=== PATIENT | male | born 1965 | race Caucasian/White ===

== ENCOUNTER 2018-01-23 16:07 | Observation (INO) | payer OTHER ==
--- OUTSIDE RECORDS SUMMARY | 2018-01-23 17:58 | XMS REPORT | Clinical Summary ---
:1965 Author Organization [facility] Address [address] [place] [address] Care Team Providers Name Role Phone Renard Mccarty MD Primary Care Provider Allergies Active Allergy Reactions Severity Noted Date Comments No Known Drug Allergies 03/31/2016 Current Medications Prescription Sig. Disp. Refills Start Date End Date Status lisinopril TAKE 1 BY MOUTH 0 12/03/2015 Active (PRINIVIL,ZESTRIL) 40 EVERY DAY MG tablet pantoprazole (PROTONIX) 1 EACH ONCE A 0 01/31/2016 Active 40 MG EC tablet DAY ORALLY propranolol (INDERAL) Take 20 mg by 2 01/19/2016 Active 20 MG tablet mouth 2 (two) times a day. HUMALOG 100 unit/mL USE DIRECTED 5 02/04/2016 Active injection FOR INSUIN PUMP STOP NOVOLOG fenofibrate (TRICOR) Take 145 mg by 0 01/31/2016 Active 145 MG tablet mouth once daily. atorvastatin (LIPITOR) Take 40 mg by Active 40 MG tablet mouth daily. metFORMIN (GLUCOPHAGE) Take 1,000 mg by Active 1000 MG tablet mouth 2 (two) times a day with meals. dulaglutide 1.5 mg/0.5 Inject 1.5 mg Active mL pen injector under the skin every 7 days. zinc sulfate (ZINCATE) Take 220 mg by Active 220 (50) mg capsule mouth daily. therapeutic Take 1 tablet by Active multivitamin mouth daily. (THERAGRAN) tablet spironolactone Take 50 mg by Active (ALDACTONE) 50 MG mouth daily. tablet IRON Take 1 tablet by Active CARB,GL/FA/B12/C/DOCUSA mouth daily. TE (FERRALET 90 DUAL-IRON DELIVERY ORAL) lactulose 10 gram/15 mL Take 15 mL (10 g 2700 mL 5 08/20/2016 08/20/2017 (15 mL) total) by mouth solutionIndications: 3 (three) times Cirrhosis of liver a day. without ascites, unspecified hepatic cirrhosis type, MARIANO (nonalcoholic steatohepatitis) Active Problems Problem Noted Date Ascites 08/20/2016 Hepatic encephalopathy 08/20/2016 Anal fissure 03/31/2016 Hematochezia 03/31/2016 Cirrhosis of liver without ascites 02/20/2016 MARIANO (nonalcoholic steatohepatitis) 02/20/2016 Family History Medical History Relation Name Comments Breast cancer Mother Relation Name Status Comments Mother Social History Tobacco Use Types Packs/Day Years Used Date Never Smoker Comments: quit 26 year ago Alcohol Use Drinks/Week oz/Week Comments No Sex Assigned at Date Recorded Not on file Last Filed Vital Signs Not on file Plan of Treatment Health Maintenance Due Date Last Done Comments COLON CANCER SCREENING 2014 SHINGRIX VACCINE (#1) 2014 INFLUENZA VACCINE 12/28/2017 Results Not on fileafter 01/22/2017 Insurance Payer Benefit Plan / Group Subscriber ID Type Phone Address [employer] A[employer] PPO OPEN CHOICE xxxxxx PPO Home: [id number] [phone] [place], [place] [phone]
[2018-01-23] MEDS ORDERED: ALBUTEROL 2.5 MG/3 ML NEB SOL IH PRN (18:20)
[2018-01-23] MEDS ORDERED: POLYETHYL GLY 3350 17 GM/DOSE PO PRN (19:00)
[2018-01-23] MEDS ORDERED: ONDANSETRON 4 MG (ODT) TAB PO PRN (19:00)
[2018-01-23] MEDS ORDERED: LOPERAMIDE HCL 2 MG CAPSULE PO PRN (19:00)
[2018-01-23] MEDS ORDERED: DIPHENHYDRAMINE 25 MG TAB/CAP PO PRN (19:00)
[2018-01-23] MEDS: NACHLORIDE 0.45% 1,000 ML IV SCH (19:00)
[2018-01-23] MEDS ORDERED: ONDANSETRON 4 MG/2 ML VIAL IV PRN (19:00)
[2018-01-23 19:09] LABS: Absolute Lymphocytes (CBC) 0.6 K/uL (0.7-4.9); Absolute Monocytes 0.5 K/uL (0.1-1.3); Absolute Neutrophil 3.4 K/uL (1.8-8.0); Eosinophils % 1.7 % (0-4.4); Hematocrit 30.8 % (39.6-49.0); Lymphocytes % 13.3 % (15.3-44.8); MCH 28.9 pg (27.0-35.0); MPV 8.6 fL (7.6-11.3); Monocytes % 10.4 % (3.3-12.3)
[2018-01-23 19:21] LABS: Protime INR 1.38
[2018-01-23] MEDS: IPRATROPIUM BROM 0.5MG/2.5ML IH SCH (19:26)
[2018-01-23] MEDS: ALBUTEROL 2.5 MG/3 ML NEB SOL IH SCH (19:26)
[2018-01-23 19:39] LABS: Urine White Blood Cell Casts OK
[2018-01-23 19:40] LABS: Blood Morphology Comment NOT SEEN (NOT SEEN); Platelet Estimate DECR
[2018-01-23 19:54] LABS: ALT/SGPT 31 U/L (12-78); AST/SGOT 30 U/L (15-37); Albumin 2.3 g/dL (3.4-5.0); Alkaline Phosphatase 113 U/L (45-117); BUN Blood Urea Nitrogen 28 mg/dL (7-18); Bicarbonate 26 mmol/L (21-32); Glucose Level 239 mg/dL (74-106); Magnesium 1.9 mg/dL (1.8-2.4); Phosphorus 2.1 mg/dL (2.5-4.9); Potassium 3.7 mmol/L (3.5-5.1); Protein, Total 6.4 g/dL (6.4-8.2); Sodium Level 136 mmol/L (136-145)
[2018-01-23 20:52] LABS: Bilirubin Total 5.3 mg/dL (0.2-1.0)
[2018-01-23] MEDS ORDERED: PNEUMOCOCCAL VACCINE 0.5 ML IMVAC ONE (21:00)
--- NOTE | 2018-01-23 21:21 | RAD REPORT ---
EXAM DESCRIPTION: CT - Abdomen Pelvis Wo Contrast - 01/23/2018 9:01 pm CLINICAL HISTORY: Abdominal pain with cramping COMPARISON: None TECHNIQUE: Computed axial tomography of the abdomen and pelvis was obtained. IV was not requested. O ral contrast was given. Coronal reconstructions performed. All CT scans are performed using dose optimization technique as appropriate and may include automated exposure control or mA/KV adjustment according to patient size. FINDINGS: The evaluation of solid organs and vessels is limited secondary to the lack of contrast a dministration. A cirrhotic liver is present. The spleen is moderately enlarged. Gallstones are present without significant gallbladder wall thickening. The pancreas, adrenals and kidneys appear grossly normal. The wall of the entire colon is moderately thickened. The appendix is normal. There is no evidence of diverticulitis. A small amount of ascites is present. Small pleural effusions are present IMPRESSION: Moderate thickening of the wall of the entire colon probably indicating a amado colitis. P robably less likely is that the wall thickening is due to hypoalbuminemia. The exam was discussed with Dr. Mccarty
--- NOTE | 2018-01-23 21:22 | RAD REPORT ---
EXAM DESCRIPTION: Manjinder Robertson (2 Views)01/23/2018 9:09 pm CLINICAL HISTORY: Abdominal pain COMPARISON: October 2016 FINDINGS: The lungs appear clear of acute infiltrate. The heart is normal size Small bilateral pleural effusions are seen
[2018-01-23] MEDS ORDERED: GLUCAGON 1 MG/VIAL IM PRN (22:55)
[2018-01-23] MEDS ORDERED: D50W 25 GM/50 ML SYRINGE IV PRN (22:55)
[2018-01-23] MEDS ORDERED: NA CHLORIDE 0.9% 500 ML ONE (23:36)
[2018-01-23] MEDS: metroNIDAZOLE 500 MG TABLET PO SCH (23:47)
[2018-01-24] MEDS: ALBUTEROL 2.5 MG/3 ML NEB SOL IH SCH ×2 (01:36→08:07)
[2018-01-24] MEDS: IPRATROPIUM BROM 0.5MG/2.5ML IH SCH ×2 (01:36→08:07)
[2018-01-24 02:22] VITALS: BMI 26.3
[2018-01-24] MEDS: ACETAMINOPHEN 325 MG TABLET PO PRN (04:34)
[2018-01-24] MEDS: metroNIDAZOLE 500 MG TABLET PO SCH ×3 (04:35→18:07)
[2018-01-24] MEDS: HYDROMORPHONE HCL 1 MG/ML INJ IV PRN (05:17)
[2018-01-24] MEDS ORDERED: GLUCAGON 1 MG/VIAL IM PRN (06:56)
[2018-01-24] MEDS ORDERED: D50W 25 GM/50 ML SYRINGE IV PRN (06:56)
[2018-01-24] MEDS: INSULIN -REGULAR HUMAN 50 UNIT/0.5 ML ML SQ SCH ×4 (07:30→21:04)
[2018-01-24] MEDS: PANTOPRAZOLE 40MG TABLET PO SCH (08:39)
[2018-01-24] MEDS: LACTULOSE 20 GM/30 ML UCUP PO SCH (08:39)
[2018-01-24] MEDS: NACHLORIDE 0.45% 1,000 ML IV SCH ×2 (08:40→15:00)
[2018-01-24 08:59] LABS: Absolute Lymphocytes (CBC) 0.9 K/uL (0.7-4.9); Absolute Monocytes 0.6 K/uL (0.1-1.3); Absolute Neutrophil 3.2 K/uL (1.8-8.0); Basophils % 0.4 % (0-1.3); Eosinophils % 3.2 % (0-4.4); Hematocrit 30.4 % (39.6-49.0); MCH 29.3 pg (27.0-35.0); MCV 86.4 fL (80-100); MPV 8.7 fL (7.6-11.3); Monocytes % 11.9 % (3.3-12.3); RBC Red Blood Cell Count 3.52 M/uL (4.33-5.43)
[2018-01-24] MEDS ORDERED: Ciprofloxacin 200mg IV 200 MG/100 ML IV.SOLN. IV SCH (09:00)
[2018-01-24 09:15] LABS: Magnesium 1.9 mg/dL (1.8-2.4)
--- NOTE | 2018-01-24 16:19 | RAD REPORT ---
EXAM DESCRIPTION: MRI - Mri Abdomen W/Wo Cont - 01/24/2018 3:43 pm CLINICAL HISTORY: attn liver. cirrhosis<Reason For Exam>attn liver. cirrhosis COMPARISON: Abdomen Pelvis Wo Contrast dated 01/23/2018<Comparisons>Abdomen Pelvis Wo Contrast da fiona 01/23/2018 TECHNIQUE: Multiplanar imaging of the abdomen performed using T1 weighted, T2 weighted, T2 haste fat saturation, T1 inphase/ opposed phase imaging and post contrast T1 fat saturation sequencing. Delaye d imaging obtained at 10 and 20 minutes. A MultiHance 20 milliliter contrast volume was utilized. FINDINGS: Liver is abnormal with a grossly nodular liver capsule. Postcontrast imaging shows a somew hat mottled enhancement pattern. There are no focal liver lesions identifiable to suspect hepatocellu lar carcinoma. Biliary tree is not dilated. Prominent splenomegaly is present with a 22 centimeter craniocaudal dimension. No focal splenic lesio n or splenic infarction identified. No acute gallbladder finding. Gallstones seen on CT imaging are n ot appreciated on MRI examination. No pancreatic parenchymal lesion. No acute renal or adrenal abnormality. Small to moderate amount of ascites is present. Patient has bilateral pleural effusions, left greater than right. Congested or edematous omentum is present. Zazueta of the colon show circumferential wall thickening an d edema. This matches the CT study. CT imaging would be better for evaluation and monitoring of the c olitis or hypoalbuminemia etiology. No abnormal lymphadenopathy. IMPRESSION: Cirrhosis of the liver with no focal liver lesion identified. Splenomegaly to 22 cm. No splenic infarct or focal splenic lesion. Small to moderate quantities of ascites with congestion and edema of the omentum.
[2018-01-24] MEDS ORDERED: INSULIN GLARGINE 100 UNITS/ML SQ SCH (21:00)
[2018-01-25] MEDS: metroNIDAZOLE 500 MG TABLET PO SCH ×2 (00:40→06:38)
[2018-01-25] MEDS: HYDROMORPHONE HCL 1 MG/ML INJ IV PRN (00:40)
[2018-01-25] MEDS: ACETAMINOPHEN 325 MG TABLET PO PRN ×2 (00:41→08:19)
[2018-01-25] MEDS: NACHLORIDE 0.45% 1,000 ML IV SCH (00:56)
[2018-01-25 04:24] LABS: Absolute Lymphocytes (CBC) 0.4 K/uL (0.7-4.9); Absolute Monocytes 0.5 K/uL (0.1-1.3); Basophils % 0.4 % (0-1.3); Eosinophils % 2.5 % (0-4.4); Hematocrit 32.5 % (39.6-49.0); Lymphocytes % 6.5 % (15.3-44.8); MCH 29.7 pg (27.0-35.0); MCV 87.9 fL (80-100); MPV 8.4 fL (7.6-11.3); Monocytes % 8.7 % (3.3-12.3)
[2018-01-25 04:36] LABS: Magnesium 1.9 mg/dL (1.8-2.4); Potassium 4.3 mmol/L (3.5-5.1)
[2018-01-25] MEDS: LACTULOSE 20 GM/30 ML UCUP PO SCH (08:15)
[2018-01-25] MEDS: INSULIN -REGULAR HUMAN 50 UNIT/0.5 ML ML SQ SCH (08:15)
[2018-01-25] MEDS: PANTOPRAZOLE 40MG TABLET PO SCH (08:15)
[2018-01-25 10:25] VITALS: BP 123/69; TEMP 98.8
[2018-01-25 11:46] VITALS: O2SAT 97
--- NOTE | 2018-01-25 18:06 | P.DS ---
Admission Date: 01/23/18 Discharge Date: 01/25/18 Disposition: ROUTINE DISCHARGE Discharge Condition: FAIR Hospital Course: WILLIAM HAS DM, CIRRHOSIS AND ENCEPHALOPATHY. 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 HE COMES WITH ABD PAIN. ON CT SCAN HE HAS PANCOLITIS. CLINICALLY HE HAS IMPROVED SIGNIFICANTLY. HE IS NEG FOR C DIFF. HE WILL CONTINUE CIPRO AND FLAGLY AND FU IN OFFICE. DM IS NOT CONTROLLED, HE HAS BRITTLE DM. HE WILL COME TO OFFICE. HE HAS QUIT HIS INSULIN -LONG ACTING SOME HOW. Vital Signs/Physical Exam: Temp Pulse Resp BP Pulse Ox 98.8 F 75 16 123/69 97 01/25/18 08:00 01/25/18 08:00 01/25/18 08:00 01/25/18 08:00 01/25/18 08:00 Laboratory Data at Discharge: WBC 6.1 K/uL (4.3-10.9) D 01/25/18 03:55 Hgb 11.0 g/dL (13.6-17.9) L 01/25/18 03:55 Hct 32.5 % (39.6-49.0) L 01/25/18 03:55 Plt Count 55 K/uL (152-406) L 01/25/18 03:55 PT 16.3 SECONDS (9.5-12.5) H 01/23/18 18:51 INR 1.38 01/23/18 18:51 APTT 28.2 SECONDS (24.3-36.9) 01/23/18 18:51 Sodium 136 mmol/L (136-145) 01/25/18 03:55 Potassium 4.3 mmol/L (3.5-5.1) 01/25/18 03:55 BUN 24 mg/dL (7-18) H 01/25/18 03:55 Creatinine 1.30 mg/dL (0.55-1.3) 01/25/18 03:55 Glucose 228 mg/dL (74-106) H 01/25/18 03:55 Phosphorus 2.1 mg/dL (2.5-4.9) L 01/23/18 18:51 Magnesium 1.9 mg/dL (1.8-2.4) 01/25/18 03:55 Total Bilirubin 5.3 mg/dL (0.2-1.0) H* 01/23/18 18:51 AST 30 U/L (15-37) 01/23/18 18:51 ALT 31 U/L (12-78) 01/23/18 18:51 Alkaline Phosphatase 113 U/L (45-117) 01/23/18 18:51 Home Medications: Fenofibrate Nanocrystallized [Fenofibrate] 1 tab PO DAILY 11/01/16 Metformin HCl [Glucophage] 1,000 mg PO BID 11/01/16 Pantoprazole Sodium 1 tab PO DAILY 11/01/16 Lactulose [Kristalose] 20 gm PO DAILY #100 packet 05/28/17 Insulin Lispro [Humalog*] 100 units SQ DAILY 01/23/18 Ciprofloxacin HCl [Cipro 500 MG Tablet] 500 mg PO BID #20 tab 01/25/18 metroNIDAZOLE [Flagyl] 500 mg PO Q8H #30 tablet 01/25/18 New Medications: Ciprofloxacin HCl [Cipro 500 MG Tablet] 500 mg PO BID #20 tab metroNIDAZOLE [Flagyl] 500 mg PO Q8H #30 tablet Patient Discharge Instructions: COME TO OFFICE INONE WEEK. WE NEED TO WORK ON DIABETES. Followup: Renard Mccarty MD [Primary Care Provider] - 1 Week (Call office to schedule appointment in 1 week.)
== END 2018-01-25 10:45 | disposition home or self-care (01) ==
LOC: 4TH 17:56
PROVIDERS: ADMIT Internal Medicine; ATTEND Internal Medicine
DX: K51.00 Ulcerative (chronic) pancolitis without complications (principal); E10.9 Type 1 diabetes mellitus without complications; K74.60 Unspecified cirrhosis of liver; G93.40 Encephalopathy, unspecified
CPT/HCPCS: 36415; 71046; 74176; 80048; 80076; 82043; 82306; 82570; 82607; 82962; 83036; 83735; 84100; 84443; 85025; 85610; 85730; 86850; 86900; 86901; 87086; 87088; 87493; 94640; G0378; J1170; P9016

== ENCOUNTER 2018-06-09 07:27 | Inpatient (IN) | payer OTHER ==
--- OUTSIDE RECORDS SUMMARY | 2018-06-09 07:29 | XMS REPORT | Clinical Summary ---
:1965 Author Organization [facility] Address [address] [place] [address] Care Team Providers Name Role Phone Renard Mccarty MD Primary Care Provider Allergies Active Allergy Reactions Severity Noted Date Comments No Known Drug Allergies 03/31/2016 Medications Medication Sig Dispensed Refills Start Date End Date Status lisinopril TAKE 1 BY MOUTH 0 12/03/2015 Active (PRINIVIL,ZESTRIL) 40 EVERY DAY MG tablet pantoprazole 1 EACH ONCE A 0 01/31/2016 Active (PROTONIX) 40 MG EC DAY ORALLY tablet propranolol (INDERAL) Take 20 mg by 2 01/19/2016 Active 20 MG tablet mouth 2 (two) times a day. HUMALOG 100 unit/mL USE DIRECTED 5 02/04/2016 Active injection FOR INSUIN PUMP STOP NOVOLOG fenofibrate (TRICOR) Take 145 mg by 0 01/31/2016 Active 145 MG tablet mouth once daily. atorvastatin (LIPITOR) Take 40 mg by 0 Active 40 MG tablet mouth daily. metFORMIN (GLUCOPHAGE) Take 1,000 mg 0 Active 1000 MG tablet by mouth 2 (two) times a day with meals. dulaglutide 1.5 mg/0.5 Inject 1.5 mg 0 Active mL pen injector under the skin every 7 days. zinc sulfate (ZINCATE) Take 220 mg by 0 Active 220 (50) mg capsule mouth daily. therapeutic Take 1 tablet 0 Active multivitamin by mouth daily. (THERAGRAN) tablet spironolactone Take 50 mg by 0 Active (ALDACTONE) 50 MG mouth daily. tablet IRON Take 1 tablet 0 Active CARB,GL/FA/B12/C/DOCUS by mouth daily. ATE (FERRALET 90 DUAL-IRON DELIVERY ORAL) lactulose 10 gram/15 Take 15 mL (10 2700 mL 5 08/20/2016 08/20/2017 mL (15 mL) g total) by solutionIndications: mouth 3 (three) Cirrhosis of liver times a day. without ascites, unspecified hepatic cirrhosis type (HCC), MARIANO (nonalcoholic steatohepatitis) Active Problems Problem Noted [...] Assigned at Date Recorded Not on file Job Start Date Occupation Industry Not on file Not on file Not on file Travel History Travel Start Travel End No recent travel history available. Last Filed Vital Signs Not on file Plan of Treatment Health Maintenance Due Date Last Done Comments COLON CANCER SCREENING 2014 SHINGLES VACCINES (1 of 2) 2014 INFLUENZA VACCINE 12/28/2017 Results Not on fileafter 06/08/2017 Insurance Payer Benefit Plan / Group Subscriber ID Type Phone Address [employer] PPO OPEN CHOICE xxxxxx PPO Advance Directives Patient has advance care planning documents on file. For more information, please contact:[place] [address]
--- OUTSIDE RECORDS SUMMARY | 2018-06-09 07:31 | XMS REPORT | Clinical Summary ---
:1965 Author Organization [facility] Address [address] [place] [address] Care Team Providers Name Role Phone Renard Mccarty Primary Care Provider Allergies No Known Allergies Medications Medication Sig Dispensed Refills Start Date End Date Status metFORMIN (GLUCOPHAGE) Take 1,000 mg by 0 Active 1000 MG tablet mouth 2 (two) times daily with breakfast and dinner . lactulose (CEPHULAC) 20 DAILY 0 05/28/2017 Active gram packet insulin lispro (HUMALOG 25-75 units as 0 02/04/2016 Active U-100 INSULIN) 100 needed unit/mL injection pantoprazole (PROTONIX) TAKE 1 TABLET BY 1 12/15/2017 Active 40 MG tablet MOUTH 1 HOUR BEFORE FOOD spironolactone Take 50 mg by 0 Active (ALDACTONE) 50 MG mouth. tablet torsemide (DEMADEX) 10 Take 10 mg by 0 Active MG tablet mouth daily. fenofibrate (TRICOR) Take 145 mg by 0 Active 145 MG tablet mouth daily. HYDROcodone-acetaminoph Take 1 tablet by 0 Active en (NORCO 5-325) 5-325 mouth every 6 mg per tablet (six) hours as needed for Pain. PARoxetine (PAXIL) 10 Take 10 mg by 0 Active MG tablet mouth nightly. Active Problems Problem Noted Date Pre-transplant evaluation for chronic liver disease 05/10/2018 Last Assessment & Plan: He is an acceptable candidate for liver transplant pending further imaging/ testing and official review at [facility]. 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 Continue follow up with hepatology. Portal hypertension 02/23/2018 Last Assessment & Plan: Portal hypertension with evidence by ascites and hypersplenism. Ascites 02/23/2018 Last Assessment & Plan: Due to cirrhosis. S/p Paracentesis once in 03/2017. He was started on diuretics in 03/2017 and had 1 episode of dehydration and ANURAG. Since then ascites has been fairly controlled with low dose diuretics . Currently taking lasix 40 and spironolactone 50mg daily. He has small ascites on exam today. We will check renal function and adjust dose of diuretics accordingly. Hepatic encephalopathy 02/23/2018 Last Assessment & Plan: He is not encephalopathic on exam today. Chamberino Grade 0-1. We will continue with lactulose to be titrated for 2-3 BMs daily. Diabetes Type 2 02/23/2018 Last Assessment & Plan: Blood glucose control per primary care. Hyperlipidemia 02/23/2018 Last Assessment & Plan: He is being managed with atorvastatin by primary care provided. Hyperlipidemia is a risk factor for fatty liver disease. Immunity status testing 02/23/2018 Last Assessment & Plan: All patients with chronic liver disease, regardless of etiology, should be immunized to prevent hepatitis A and hepatitis B if they are not already immune. We will test for immunity to both viruses and vaccine recommendations will follow. Cancer screening 02/23/2018 Last Assessment & Plan: Hepatocellular cancer screening: Cirrhosis, regardless of etiology, is a risk factor for development of hepatocellular carcinoma (HCC). The annual incidence of HCC varies from 1.5-7%. Thus, we recommend surveillance of HCC every 6 months with MRI and AFP. MRI was done on 01/24/2018 showed no hepatic lesions. AFP 2.9 on 08/20/2016. We will repeat AFP today. Next imaging US due 06/2018. Colon cancer screening: We will get colonoscopy reports from outside facility. Encounters Date Type Specialty Care Team Description 05/22/2018 Telephone Hepatology Leslie Ramirez Procedure (EGD/TIVA) L 05/18/2018 Abstract Transplant Hepatology Sherry Riversefren García 05/11/2018 [facility] Charge Visit Transplant Hepatology Randy Ocampo MD Provider, [facility] Registry Generic 05/11/2018 Documentation Transplant Hepatology Hunter Oneill, [facility] 05/11/2018 Documentation Transplant Hepatology Deborah Mahmood RN 05/10/2018 Hospital Encounter Radiology 05/10/2018 Hospital Encounter Karey Lozoya Pre-transplant MD Ayaka evaluation for liver transplant 05/10/2018 Hospital Encounter Karey Lozoya Pre-transplant MD Ayaka evaluation for liver transplant 05/10/2018 Hospital Encounter Karey Lozoya Pre-transplant MD Ayaka evaluation for liver transplant 05/10/2018 Follow-Up Transplant Hepatology Karey Lozoya Pre-transplant evaluation for chronic liver disease; MD Ayaka Diabetes Type 2; Randy Ocampo Portal hypertension MD Jeff 05/10/2018 Social Work Transplant Hepatology Karey Lozoya MD Kremer, Robin M, [facility] 05/10/2018 Hospital Encounter Radiology Karey Lozoya Pre-transplant evaluation for liver transplant; MD Ayaka Screening for malignant neoplasm 05/10/2018 Office Visit Lab Karey Lozoya Pre-transplant MD Ayaka evaluation for liver transplant 05/10/2018 Orders Only Transplant Hepatology Karey Lozoya Pre-transplant evaluation for liver transplant; MD Ayaka MARIANO (nonalcoholic steatohepatitis); ETOH abuse 05/10/2018 Documentation Transplant Hepatology Gabby Rivers 05/10/2018 Orders Only Transplant Hepatology Chinmay, Ascites; Kolby Montiel MD Portal hypertension 05/10/2018 Orders Only Transplant Hepatology Lilly, Ascites (Primary Dx); VALENTÍN Walden Portal hypertension 05/09/2018 Travel 05/09/2018 Telephone Transplant Hepatology Solomon Arambula ([facility]. Lisa Monzon Calling to confirm 05/10 & 05/11 eval appts w/pt. ) 04/12/2018 Orders Only Transplant Hepatology Maxx, Pre-transplant evaluation for liver transplant (Primary Dx); VALENTÍN Walden MARIANO (nonalcoholic steatohepatitis); ETOH abuse; Screening for malignant neoplasm 04/12/2018 Telephone Transplant Hepatology Johnson, Liver Transplant Shama Pre-evaluation ([facility] asking pt to return my call.) 04/07/2018 Abstract Transplant Hepatology Randy Ocampo MD 04/06/2018 Abstract Hepatology Trixie Vergara RN 04/06/2018 Abstract HepatTrixie Parada RN 04/06/2018 Abstract HepatTrixie Parada RN 04/06/2018 Telephone Hepatology Trixie Vergara RN 04/06/2018 Orders Only Hepatology Trixie Vergara Cirrhosis of liver P, RN with ascites, unspecified hepatic cirrhosis type (HCC) (Primary Dx) 04/06/2018 Orders Only Hepatology Sammy Janki Elevated serum Deisy, PSYCHOLOGY INTERN creatinine (Primary Dx) 04/04/2018 Office Visit Hepatology Chinmay, Cirrhosis of liver with ascites, unspecified hepatic cirrhosis type (HCC) (Primary Dx); Kolby Montiel MD Diabetes Type 2; Immunity status testing; Hyperlipidemia, unspecified hyperlipidemia type; Ascites; Hepatic encephalopathy; Portal hypertension 03/30/2018 Surgery Gastroenterology Chinmay Chacon MD ENDOSCOPY,BIOPSY 03/30/2018 Anesthesia Event Gastroenterology Aris Campos MD 03/30/2018 Hospital Encounter Gastroenterology Chinmay Chacon MD 03/29/2018 Hospital Encounter Pre-Admission Testing Resource, [facility] Preadmit Phone 03/23/2018 Outside Orders Central Scheduling System, Provider Not In 02/27/2018 Telephone Hepatology Leslie Ramirez Procedure (EGD/MAC) L 02/23/2018 Office Visit Hepatology Chinmay, Cirrhosis of liver with ascites, unspecified hepatic cirrhosis type (HCC) (Primary Dx); Kolby Montiel MD Portal hypertension; Gerhard Cruz Ascites; MD Jose Elias Hepatic encephalopathy; Diabetes Type 2; Hyperlipidemia, unspecified hyperlipidemia type; Immunity status testing; Cancer screening 02/16/2018 Telephone Hepatology Shanta, Appointment Bryanna Maynard 02/16/2018 Telephone Hepatology Shanta Appointment Bryanna Maynard 02/15/2018 Telephone Hepatology Davida Caban Appointment after 06/08/2017 Family History Medical History Relation Name Comments Cancer Mother Diabetes Mother Relation Name Status Comments Mother Alive Social History Tobacco Use Types Packs/Day Years Used Date Former Smoker Cigarettes 1 Quit: 1991 Smokeless Tobacco: Never Used Alcohol Use Drinks/Week oz/Week Comments No quit 06/2016 Sex Assigned at Date Recorded Male 05/09/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 Last Filed Vital Signs Vital Sign Reading Time Taken Blood Pressure 110/53 05/10/2018 5:58 PM INDUSTRIAL ELECTRICAL TECHNICIAN Pulse 67 05/10/2018 5:58 PM INDUSTRIAL ELECTRICAL TECHNICIAN Temperature 36.5 C (97.7 F) 05/10/2018 5:58 PM INDUSTRIAL ELECTRICAL TECHNICIAN Respiratory Rate 18 05/10/2018 5:58 PM INDUSTRIAL ELECTRICAL TECHNICIAN Oxygen Saturation 100% 05/10/2018 5:58 PM INDUSTRIAL ELECTRICAL TECHNICIAN Inhaled Oxygen Concentration 21% 05/10/2018 9:20 AM INDUSTRIAL ELECTRICAL TECHNICIAN Weight 93 kg (205 lb) 05/10/2018 4:17 PM INDUSTRIAL ELECTRICAL TECHNICIAN Height 185.4 cm (6' 1") 05/10/2018 4:17 PM INDUSTRIAL ELECTRICAL TECHNICIAN Body Mass Index 27.05 05/10/2018 4:17 PM INDUSTRIAL ELECTRICAL TECHNICIAN Plan of Treatment Health Maintenance Due Date Last Done Comments INFLUENZA VACCINE 02/27/2018 Procedures Procedure Name Priority Date/Time Associated Comments Diagnosis TRANSFUSION SERVICE 05/11/2018 6:04 REPORT - SCAN PM INDUSTRIAL ELECTRICAL TECHNICIAN TRANSFUSION SERVICE 05/11/2018 6:04 REPORT - SCAN PM INDUSTRIAL ELECTRICAL TECHNICIAN CALCIUM, IONIZED Routine 05/11/2018 3:39 Pre-transplant Results for this PM INDUSTRIAL ELECTRICAL TECHNICIAN evaluation for procedure are in liver transplant the results section. US PARACENTESIS Routine 05/10/2018 5:54 Ascites Results for this PM INDUSTRIAL ELECTRICAL TECHNICIAN Portal hypertension procedure are in the results section. PROTEIN, TOTAL Routine 05/10/2018 5:10 Results for this PM INDUSTRIAL ELECTRICAL TECHNICIAN procedure are in the results section. BODY FLUID CELL COUNT Routine 05/10/2018 5:10 Results for this WITH DIFFERENTIAL PM INDUSTRIAL ELECTRICAL TECHNICIAN procedure are in the results section. T SPOT TB Routine 05/10/2018 2:17 Pre-transplant Results for this PM INDUSTRIAL ELECTRICAL TECHNICIAN evaluation for procedure are in liver transplant the results section. BLOOD TYPING, AUTOMATED Routine 05/10/2018 2:13 Pre-transplant Results for this PM INDUSTRIAL ELECTRICAL TECHNICIAN evaluation for procedure are in liver transplant the results section. MITOCHONDRIA M2 Routine 05/10/2018 2:10 Pre-transplant Results for this ANTIBODY (IGG) PM INDUSTRIAL ELECTRICAL TECHNICIAN evaluation for procedure are in liver transplant the results section. CBC W/PLT COUNT & AUTO Routine 05/10/2018 1:58 Pre-transplant Results for this DIFFERENTIAL PM INDUSTRIAL ELECTRICAL TECHNICIAN evaluation for procedure are in liver transplant the results section. TYPE AND SCREEN, Routine 05/10/2018 1:58 Pre-transplant Results for this AUTOMATED PM INDUSTRIAL ELECTRICAL TECHNICIAN evaluation for procedure are in liver transplant the results section. PLATELET COUNT STAT 05/10/2018 1:58 Results for this PM INDUSTRIAL ELECTRICAL TECHNICIAN procedure are in the results section. PT/APTT STAT 05/10/2018 1:58 Results for this PM INDUSTRIAL ELECTRICAL TECHNICIAN procedure are in the results section. TESTOSTERONE, FREE + Routine 05/10/2018 1:58 Pre-transplant Results for this TOTAL PM INDUSTRIAL ELECTRICAL TECHNICIAN evaluation for procedure are in liver transplant the results section. PSA Routine 05/10/2018 1:58 Pre-transplant Results for this PM INDUSTRIAL ELECTRICAL TECHNICIAN evaluation for procedure are in liver transplant the results section. URINALYSIS W/ Routine 05/10/2018 1:58 Pre-transplant Results for this MICROSCOPIC PM INDUSTRIAL ELECTRICAL TECHNICIAN evaluation for procedure are in liver transplant the results section. RPR Routine 05/10/2018 1:58 Pre-transplant Results for this PM INDUSTRIAL ELECTRICAL TECHNICIAN evaluation for procedure are in liver transplant the results section. EBV ANTIBODY, IGM Routine 05/10/2018 1:58 Pre-transplant Results for this PM INDUSTRIAL ELECTRICAL TECHNICIAN evaluation for procedure are in liver transplant the results section. EBV ANTIBODY, IGG Routine 05/10/2018 1:58 Pre-transplant Results for this PM INDUSTRIAL ELECTRICAL TECHNICIAN evaluation for procedure are in liver transplant the results section. CYTOMEGALOVIRUS Routine 05/10/2018 1:58 Pre-transplant Results for this ANTIBODY, IGM PM INDUSTRIAL ELECTRICAL TECHNICIAN evaluation for procedure are in liver transplant the results section. CYTOMEGALOVIRUS Routine 05/10/2018 1:58 Pre-transplant Results for this ANTIBODY, IGG PM INDUSTRIAL ELECTRICAL TECHNICIAN evaluation for procedure are in liver transplant the results section. HIV-1 ANTIGEN WITH Routine 05/10/2018 1:58 Pre-transplant Results for this HIV-1/2 ANTIBODY PM INDUSTRIAL ELECTRICAL TECHNICIAN evaluation for procedure are in liver transplant the results section. HEPATITIS B CORE Routine 05/10/2018 1:58 Pre-transplant Results for this ANTIBODY, IGM PM INDUSTRIAL ELECTRICAL TECHNICIAN evaluation for procedure are in liver transplant the results section. HEPATITIS A ANTIBODY, Routine 05/10/2018 1:58 Pre-transplant Results for this IGM PM INDUSTRIAL ELECTRICAL TECHNICIAN evaluation for procedure are in liver transplant the results section. T4 Routine 05/10/2018 1:58 Pre-transplant Results for this PM INDUSTRIAL ELECTRICAL TECHNICIAN evaluation for procedure are in liver transplant the results section. T3 AP Routine 05/10/2018 1:58 Pre-transplant Results for this PM INDUSTRIAL ELECTRICAL TECHNICIAN evaluation for procedure are in liver transplant the results section. TSH Routine 05/10/2018 1:58 Pre-transplant Results for this PM INDUSTRIAL ELECTRICAL TECHNICIAN evaluation for procedure are in liver transplant the results section. URIC ACID Routine 05/10/2018 1:58 Pre-transplant Results for this PM INDUSTRIAL ELECTRICAL TECHNICIAN evaluation for procedure are in liver transplant the results section. ETHANOL Routine 05/10/2018 1:58 Pre-transplant Results for this PM INDUSTRIAL ELECTRICAL TECHNICIAN evaluation for procedure are in liver transplant the results section. DRUG SCREEN, URINE, Routine 05/10/2018 1:58 Pre-transplant TRANSPLANT PM INDUSTRIAL ELECTRICAL TECHNICIAN evaluation for liver transplant ETOH abuse HEMOGLOBIN A1C Routine 05/10/2018 1:58 Pre-transplant Results for this PM INDUSTRIAL ELECTRICAL TECHNICIAN evaluation for procedure are in liver transplant the results section. LIPID PANEL Routine 05/10/2018 1:58 Pre-transplant Results for this PM INDUSTRIAL ELECTRICAL TECHNICIAN evaluation for procedure are in liver transplant the results section. VITAMIN D, 25-HYDROXY Routine 05/10/2018 1:58 Pre-transplant Results for this PM INDUSTRIAL ELECTRICAL TECHNICIAN evaluation for procedure are in liver transplant the results section. TRANSFERRIN Routine 05/10/2018 1:58 Pre-transplant Results for this PM INDUSTRIAL ELECTRICAL TECHNICIAN evaluation for procedure are in liver transplant the results section. CBC W/PLT COUNT & AUTO Routine 05/10/2018 1:58 Pre-transplant Results for this DIFFERENTIAL PM INDUSTRIAL ELECTRICAL TECHNICIAN evaluation for procedure are in liver transplant the results section. PHOSPHORUS Routine 05/10/2018 1:58 Pre-transplant Results for this PM INDUSTRIAL ELECTRICAL TECHNICIAN evaluation for procedure are in liver transplant the results section. MAGNESIUM Routine 05/10/2018 1:58 Pre-transplant Results for this PM INDUSTRIAL ELECTRICAL TECHNICIAN evaluation for procedure are in liver transplant the results section. GAMMA GLUTAMYL Routine 05/10/2018 1:58 Pre-transplant Results for this TRANSFERASE (GGT) PM INDUSTRIAL ELECTRICAL TECHNICIAN evaluation for procedure are in liver transplant the results MARIANO (nonalcoholic section. steatohepatitis) BILIRUBIN, DIRECT Routine 05/10/2018 1:58 Pre-transplant Results for this PM INDUSTRIAL ELECTRICAL TECHNICIAN evaluation for procedure are in liver transplant the results MARIANO (nonalcoholic section. steatohepatitis) COMPREHENSIVE METABOLIC Routine 05/10/2018 1:58 Pre-transplant Results for this PANEL PM INDUSTRIAL ELECTRICAL TECHNICIAN evaluation for procedure are in liver transplant the results MARIANO (nonalcoholic section. steatohepatitis) FIBRINOGEN Routine 05/10/2018 1:58 Pre-transplant Results for this PM INDUSTRIAL ELECTRICAL TECHNICIAN evaluation for procedure are in liver transplant the results section. XR DXA BONE DENSITY Routine 05/10/2018 1:05 Pre-transplant Results for this STUDY PM INDUSTRIAL ELECTRICAL TECHNICIAN evaluation for procedure are in liver transplant the results section. XR CHEST 2 VIEWS Routine 05/10/2018 12:52 Pre-transplant Results for this PM INDUSTRIAL ELECTRICAL TECHNICIAN evaluation for procedure are in liver transplant the results section. XR MANDIBLE MIN 4 VIEWS Routine 05/10/2018 12:51 Pre-transplant Results for this PM INDUSTRIAL ELECTRICAL TECHNICIAN evaluation for procedure are in liver transplant the results section. BLOOD GAS, ARTERIAL Routine 05/10/2018 9:20 Results for this AM INDUSTRIAL ELECTRICAL TECHNICIAN procedure are in the results section. MR ABDOMEN WITH/WITHOUT Routine 05/10/2018 8:32 Pre-transplant Results for this IV CONTRAST AM INDUSTRIAL ELECTRICAL TECHNICIAN evaluation for procedure are in liver transplant the results Screening for section. malignant neoplasm BASIC METABOLIC PANEL Routine 05/01/2018 1:02 Cirrhosis of liver Results for this (7) PM INDUSTRIAL ELECTRICAL TECHNICIAN with ascites, procedure are in unspecified hepatic the results cirrhosis type section. (HCC) CBC W/PLT COUNT & AUTO Routine 04/04/2018 2:40 Cirrhosis of liver Results for this DIFFERENTIAL PM INDUSTRIAL ELECTRICAL TECHNICIAN with ascites, procedure are in unspecified hepatic the results cirrhosis type section. (HCC) ZINC Routine 04/04/2018 2:40 Cirrhosis of liver Results for this PM INDUSTRIAL ELECTRICAL TECHNICIAN with ascites, procedure are in unspecified hepatic the results cirrhosis type section. (HCC) LACTIC ACID, VENOUS, Routine 04/04/2018 2:40 Diabetes Type 2 Results for this WHOLE BLOOD PM INDUSTRIAL ELECTRICAL TECHNICIAN procedure are in the results section. PROTHROMBIN TIME/INR Routine 04/04/2018 2:40 Cirrhosis of liver Results for this PM INDUSTRIAL ELECTRICAL TECHNICIAN with ascites, procedure are in unspecified hepatic the results cirrhosis type section. (HCC) CBC W/PLT COUNT & AUTO Routine 04/04/2018 2:40 Cirrhosis of liver Results for this DIFFERENTIAL PM INDUSTRIAL ELECTRICAL TECHNICIAN with ascites, procedure are in unspecified hepatic the results cirrhosis type section. (HCC) HEPATIC FUNCTION PANEL Routine 04/04/2018 2:40 Cirrhosis of liver Results for this PM INDUSTRIAL ELECTRICAL TECHNICIAN with ascites, procedure are in unspecified hepatic the results cirrhosis type section. (HCC) BASIC METABOLIC PANEL Routine 04/04/2018 2:40 Cirrhosis of liver Results for this (7) PM INDUSTRIAL ELECTRICAL TECHNICIAN with ascites, procedure are in unspecified hepatic the results cirrhosis type section. (HCC) POCT-GLUCOSE METER Routine 03/30/2018 11:45 Results for this AM CDT procedure are in the results section. REPORT OF PROCEDURE - 03/30/2018 11:34 ENDOSCOPY URL AM CDT UPPER ENDOSCOPY,BANDING 03/30/2018 11:30 Esophageal varices AM CDT without bleeding, unspecified esophageal varices type (HCC) UPPER ENDOSCOPY,BIOPSY 03/30/2018 11:30 Esophageal varices AM CDT without bleeding, unspecified esophageal varices type (HCC) TISSUE EXAM AP Routine 03/30/2018 11:24 Results for this AM CDT procedure are in the results section. POCT-GLUCOSE METER Routine 03/30/2018 11:03 Results for this AM CDT procedure are in the results section. CARCINOEMBRYONIC Routine 02/23/2018 11:57 Cirrhosis of liver Results for this ANTIGEN (CEA) AM CDT with ascites, procedure are in unspecified hepatic the results cirrhosis type section. (HCC) ALPHA FETOPROTEIN Routine 02/23/2018 11:57 Cirrhosis of liver Results for this (AFP), TUMOR MARKER AM CDT with ascites, procedure are in unspecified hepatic the results cirrhosis type section. (HCC) HEPATITIS B CORE Routine 02/23/2018 11:57 Cirrhosis of liver Results for this ANTIBODY, TOTAL AM CDT with ascites, procedure are in unspecified hepatic the results cirrhosis type section. (HCC) HEPATITIS A ANTIBODY, Routine 02/23/2018 11:57 Cirrhosis of liver Results for this IGG AM CDT with ascites, procedure are in unspecified hepatic the results cirrhosis type section. (HCC) PROTHROMBIN TIME/INR Routine 02/23/2018 11:57 Cirrhosis of liver Results for this AM CDT with ascites, procedure are in unspecified hepatic the results cirrhosis type section. (HCC) FERRITIN Routine 02/23/2018 11:57 Cirrhosis of liver Results for this AM CDT with ascites, procedure are in unspecified hepatic the results cirrhosis type section. (HCC) CBC W/PLT COUNT & AUTO Routine 02/23/2018 11:56 Cirrhosis of liver Results for this DIFFERENTIAL AM CDT with ascites, procedure are in unspecified hepatic the results cirrhosis type section. (HCC) CARBOHYDRATE ANTIGEN Routine 02/23/2018 11:56 Cirrhosis of liver Results for this 19-9 (CA 19-9) AM CDT with ascites, procedure are in unspecified hepatic the results cirrhosis type section. (HCC) HEPATITIS C ANTIBODY Routine 02/23/2018 11:56 Cirrhosis of liver Results for this AM CDT with ascites, procedure are in unspecified hepatic the results cirrhosis type section. (HCC) HEPATITIS B SURFACE Routine 02/23/2018 11:56 Cirrhosis of liver Results for this ANTIGEN AM CDT with ascites, procedure are in unspecified hepatic the results cirrhosis type section. (HCC) HEPATITIS B SURFACE Routine 02/23/2018 11:56 Cirrhosis of liver Results for this ANTIBODY AM CDT with ascites, procedure are in unspecified hepatic the results cirrhosis type section. (HCC) IRON, TIBC, % SAT. Routine 02/23/2018 11:56 Cirrhosis of liver Results for this (WITHOUT FERRITIN) AM CDT with ascites, procedure are in unspecified hepatic the results cirrhosis type section. (HCC) COMPREHENSIVE METABOLIC Routine 02/23/2018 11:56 Cirrhosis of liver Results for this PANEL AM CDT with ascites, procedure are in unspecified hepatic the results cirrhosis type section. (HCC) CERULOPLASMIN Routine 02/23/2018 11:56 Cirrhosis of liver Results for this AM CDT with ascites, procedure are in unspecified hepatic the results cirrhosis type section. (HCC) CBC W/PLT COUNT & AUTO Routine 02/23/2018 11:56 Cirrhosis of liver Results for this DIFFERENTIAL AM CDT with ascites, procedure are in unspecified hepatic the results cirrhosis type section. (HCC) ANTI-NUCLEAR ANTIBODY Routine 02/23/2018 11:56 Cirrhosis of liver Results for this (ANALIA) AM CDT with ascites, procedure are in unspecified hepatic the results cirrhosis type section. (HCC) ANTI-MITOCHONDRIAL AB, Routine 02/23/2018 11:56 Cirrhosis of liver REFLEX TO TITER AM CDT with ascites, unspecified hepatic cirrhosis type (HCC) [id number]\\, Routine 02/23/2018 11:56 Cirrhosis of liver Results for this SERUM AM CDT with ascites, procedure are in unspecified hepatic the results cirrhosis type section. (HCC) ACTIN (SMOOTH MUSCLE) Routine 02/23/2018 11:56 Cirrhosis of liver Results for this ANTIBODY, IGG AM CDT with ascites, procedure are in unspecified hepatic the results cirrhosis type section. (HCC) after 06/08/2017 Results TRANSFUSION SERVICE REPORT - SCAN (05/11/2018 6:04 PM INDUSTRIAL ELECTRICAL TECHNICIAN)Only the most recent of2 resultswithin the time period is included. Narrative Performed At Calcium, Ionized (05/11/2018 3:39 PM INDUSTRIAL ELECTRICAL TECHNICIAN) Calcium, Ion 1.10 (L) 1.12 - 1.27 mmol/L [facility] pH, Blood 7.45 [facility] Specimen Blood Performing Organization Address City/State/Zipcode Phone Number [facility] [address] [place] [address] CENTER Ultrasound PARACENTESIS (05/10/2018 5:54 PM INDUSTRIAL ELECTRICAL TECHNICIAN) Narrative Performed At FINAL REPORT [facility] Ultrasound guided paracentesis, 05/10/2018. Clinical History:Ascites. Sedation: None. General Accountant:Sophie. Practice Physician:None. Estimated Blood Loss: < 1 cc. Specimen: 5600 cc of clear yellow fluid, samples sent to laboratory. Technique:Informed consent was obtained.The risks of pain, bleeding, infection, bowel perforation, injury to adjacent structures, and adverse medication reactions were discussed with the patient. After informed consent was obtained, the patient's abdomen was scanned.The right upper quadrant of the abdomen was selected for paracentesis.After the largest fluid pocket area was marked, and the anterior abdominal wall was evaluated with color Doppler to exclude presence of blood vessels traversing the area, the skin was prepped and draped in the usual sterile manner.After local anesthesia was achieved with 1% lidocaine, a 5 Guamanian one-step catheter was advanced into the peritoneal cavity under ultrasound guidance. After completion of drainage, the catheter was removed. There was no evidence of complication. Patient Disposition:The patient was discharged from the ultrasound department after the paracentesis, in good condition. Impression: Successful ultrasound guided paracentesis. Signed: Italo Barrios MD Report Verified Date/Time:05/11/2018 09:31:15 Reading Location: [place] [address] Angio Body Reading Room Procedure Note Interface, External Ris In - 05/11/2018 9:33 AM INDUSTRIAL ELECTRICAL TECHNICIAN FINAL REPORT Ultrasound guided paracentesis, 05/10/2018. Clinical History: Ascites. Sedation: None. General Accountant: Sophie. Practice Physician: None. Estimated Blood Loss: < 1 cc. Specimen: 5600 cc of clear yellow fluid, samples sent to laboratory. Technique: Informed consent was obtained. The risks of pain, bleeding, infection, bowel perforation, injury to adjacent structures, and adverse medication reactions were discussed with the patient. After informed consent was obtained, the patient's abdomen was scanned. The right upper quadrant of the abdomen was selected for paracentesis. After the largest fluid pocket area was marked, and the anterior abdominal wall was evaluated with color Doppler to exclude presence of blood vessels traversing the area, the skin was prepped and draped in the usual sterile manner. After local anesthesia was achieved with 1% lidocaine, a 5 Guamanian one-step catheter was advanced into the peritoneal cavity under ultrasound guidance. After completion of drainage, the catheter was removed. There was no evidence of complication. Patient Disposition: The patient was discharged from the ultrasound department after the paracentesis, in good condition. Impression: Successful ultrasound guided paracentesis. Signed: Italo Barrios MD Report Verified Date/Time: 05/11/2018 09:31:15 Reading Location: [place] [address] Angio Body Reading Room Performing Organization Address [facility] Phone Number GE RIS Body fluid cell count with differential (05/10/2018 5:10 PM INDUSTRIAL ELECTRICAL TECHNICIAN) Appearance Slightly Hazy (A) Clear [facility] Color Yellow (A) Colorless, Straw [facility] RBCs 240 (H) <=1 /cu mm [facility] Adjusted WBC Count 80 (H) <=5 /cu mm [facility] Lining Cells 0 <=1 /cu mm [facility] % Segs 2 % [facility] % Lymphs 54 % [facility] % Monos 44 % [facility] % Eos 0 % [facility] % Baso 0 % [facility] Container Body Fluid EDTA Tube [facility] Specimen Body Fluid - Ascites Performing Organization Address [facility] Phone Number [address] [address] CENTER Protein, total (05/10/2018 5:10 PM INDUSTRIAL ELECTRICAL TECHNICIAN) Protein, Total <0.8 (L) 6.0 - 8.3 gm/dL [facility] Specimen Body Fluid - Ascites Performing Organization Address [facility] Phone Number [address] [address] CENTER T Spot TB (05/10/2018 2:17 PM INDUSTRIAL ELECTRICAL TECHNICIAN) T-Spot TB Negative [facility] Neg Ctrl Spot Count 0 [facility] Panel A Spot 1 [facility] Panel B Spot 2 [facility] Pos Ctrl Spot Ct 0 [facility] Scan Result [facility] Specimen Blood Narrative Performed At Performing Organization Address City/State/Zipcode Phone Number [facility] [address] [place] [address] LABORATORIES [address] Blood typing, automated (05/10/2018 2:13 PM INDUSTRIAL ELECTRICAL TECHNICIAN) ABO/RH AUTOMATED (BEBlaze) A POSITIVE [facility] Specimen Blood Performing Organization Address City/[facility]/Zipcode Phone Number [address] [address] [phone] Mitochondria M2 Antibody (IgG) (05/10/2018 2:10 PM INDUSTRIAL ELECTRICAL TECHNICIAN) Mitochondria M2 Ab 20.4 (H) See Note: U [facility] Comment: Reference Range: NEGATIVE:< OR=20.0 EQUIVOCAL: 20.1-24.9 POSITIVE:> OR=25.0 Specimen Blood Narrative Performed At Performing Lab [facility] EZ [facility] [address] [place] [address] Aide Monteiro MD, PhD, JUAN CARLOS Performing Organization Address City/[facility] Phone Number [facility] [address] [address] [facility] Drug screen, urine, transplant (05/10/2018 1:58 PM INDUSTRIAL ELECTRICAL TECHNICIAN) Specimen Urine Narrative Performed At Performing Organization Address City/State/Zipcode Phone Number [facility] [address] [place] [address] Type and screen, automated (05/10/2018 1:58 PM INDUSTRIAL ELECTRICAL TECHNICIAN) ABO/ AUTOMATED (BEBlaze) A POSITIVE [facility] Ab Scrn NEGATIVE [facility] Specimen Blood Performing Organization Address [facility]/Zipcode Phone Number [address] [address] PT/aPTT (05/10/2018 1:58 PM INDUSTRIAL ELECTRICAL TECHNICIAN) Protime 19.6 (H) 11.7 - 14.7 seconds [facility] INR 1.7 <=5.9 [facility] PTT 35.4 22.5 - 36.0 seconds [facility] Specimen Blood Narrative Performed At RECOMMENDED COUMADIN/WARFARIN INR THERAPY [facility] RANGES STANDARD DOSE: 2.0 - 3.0 Includes: PROPHYLAXIS for venous thrombosis, systemic embolization; TREATMENT for venous thrombosis and/or pulmonary embolus. HIGH RISK: Target INR is 2.5-3.5 for patients with mechanical heart valves. Performing Organization Address City/State/Zipcode Phone Number [address] [address] CENTER HIV-1 Antigen with HIV-1/2 Antibody (05/10/2018 1:58 PM INDUSTRIAL ELECTRICAL TECHNICIAN) HIV-1 Antigen with HIV 1&2 NON-REACTIVE Nonreactive [facility] Specimen Blood Performing Organization Address City/State/Zipcode Phone Number [facility] [address] [place] [phone] CENTER CBC with platelet count + automated diff (05/10/2018 1:58 PM INDUSTRIAL ELECTRICAL TECHNICIAN)Only the most recent of3 resultswithin the time period is included. WBC 3.9 3.5 - 10.5 K/L [facility] RBC 3.68 (L) 4.63 - 6.08 M/L [facility] Hemoglobin 12.1 (L) 13.7 - 17.5 GM/DL [facility] Hematocrit 36.4 (L) 40.1 - 51.0 % [facility] MCV 98.9 (H) 79.0 - 92.2 fL [facility] MCH 32.9 (H) 25.7 - 32.2 pg [facility] MCHC 33.2 32.3 - 36.5 GM/DL [facility] RDW 14.9 (H) 11.6 - 14.4 % [facility] Platelets 67 (L) 150 - 450 K/CU MM [facility] MPV 10.4 9.4 - 12.4 fL [facility] nRBC 0 0 - 0 /100 WBC [facility] % Neutros 64 % [facility] % Lymphs 21 % [facility] % Monos 9 % [facility] % Eos 5 % [facility] % Baso 1 % [facility] # Neutros 2.51 1.78 - 5.38 K/L [facility] # Lymphs 0.81 (L) 1.32 - 3.57 K/L [facility] # Monos 0.34 0.30 - 0.82 K/L [facility] # Eos 0.18 0.04 - 0.54 K/L [facility] # Baso 0.05 0.01 - 0.08 K/L [facility] Immature Granulocytes-Relative 0 0 - 1 % [facility] Specimen Blood Performing Organization Address City/[facility] Phone Number [address] [address] [phone] CENTER Cytomegalovirus antibody, IgM (05/10/2018 1:58 PM INDUSTRIAL ELECTRICAL TECHNICIAN) CMV IGM Negative Negative, Equivocal [facility] Specimen Blood Narrative Performed At CMV IgM Result Interpretation: [facility] </=0.8 Al Negative 0.9-1.0 Al Equivocal >/=1.1 Al Positive Performing Organization Address City/[facility] Phone Number [address] [place] [address] CENTER Hepatitis A antibody, IgM (05/10/2018 1:58 PM INDUSTRIAL ELECTRICAL TECHNICIAN) Hep A IgM HEPATITIS A TEST NEGATIVE Nonreactive [facility] Specimen Blood Performing Organization Address City/[facility] Cent[facility]ode Phone Number [address] [address] [phone] CENTER Hepatitis B core antibody, IgM (05/10/2018 1:58 PM INDUSTRIAL ELECTRICAL TECHNICIAN) Hep B C IgM NON-REACTIVE Nonreactive [facility] Specimen Blood Performing Organization Address [facility] Cent[facility]ode Phone Number [address] [address] CENTER EBV-VCA antibody, IgM (05/10/2018 1:58 PM INDUSTRIAL ELECTRICAL TECHNICIAN) DORA GERBER VIRAL CAPSID Negative Negative, Equivocal [facility] Specimen Blood Narrative Performed At Dora Gerber Viral Capsid Antigen IgM Result [facility] Interpretation: </=0.8 Al Negative 0.9-1.0 Al Equivocal >/=1.1 Al Positive Performing Organization Address [facility] Phone Number [address] [address] [phone] CENTER EBV-VCA antibody, IgG (05/10/2018 1:58 PM INDUSTRIAL ELECTRICAL TECHNICIAN) DORA GERBER VIRAL CAPSID Positive (A) Negative, Equivocal [facility] Specimen Blood Narrative Performed At Dora Gerber Viral Capsid Antigen IgG Result [facility] Interpretation: </=0.8 Al Negative 0.9-1.0 Al Equivocal >/=1.1 Al Positive Performing Organization Address [facility]ode Phone Number [address] [address] [phone] CENTER Vitamin D, 25-Hydroxy (05/10/2018 1:58 PM INDUSTRIAL ELECTRICAL TECHNICIAN) Vitamin D 25-Hydroxy 19.6 6.6 - 49.9 ng/mL [facility] Specimen Blood Narrative Performed At Effective 03/09/2017: Reference Range Change [facility] New: 6.6-49.9 ng/mL Previous: 13.0-47.8 ng/mL Recommended Vitamin D Target Range: 30.0-40.0 ng/mL Performing Organization Address [facility] Phone Number [address] [address] [place] RPR (05/10/2018 1:58 PM INDUSTRIAL ELECTRICAL TECHNICIAN) RPR Nonreactive Nonreactive [facility] Specimen Blood Performing Organization Address [facility] Phone Number [address] [address] [place] Cytomegalovirus antibody, IgG (05/10/2018 1:58 PM INDUSTRIAL ELECTRICAL TECHNICIAN) CYTOMEGALOVIRUS, IGG Positive (A) Negative, Equivocal [facility] Specimen Blood Narrative Performed At CMV IgG Result Interpretation: [facility] </=0.8 Al Negative 0.9-1.0 Al Equivocal >/=1.1 AlPositive Performing Organization Address [facility] Phone Number [address] [address] [place] Urinalysis w/Microscopic (05/10/2018 1:58 PM INDUSTRIAL ELECTRICAL TECHNICIAN) Color, UA Norton [facility] Clarity, UA Clear [facility] Specific [place], UA 1.033 1.001 - 1.035 [facility] pH, UA 5.5 5.0 - 8.0 [facility] Protein, UA 20 mg/dL (A) Negative [facility] Glucose, UA Negative Negative [facility] Ketones, UA 10 mg/dL (A) Negative [facility] Bilirubin, UA Positive (A) Negative [facility] Blood, UA Small (A) Negative [facility] Nitrite, UA Negative Negative [facility] Leukocytes, UA Negative Negative [facility] Urobilinogen, UA 4.0 (H) 0.2 - 1.0 mg/dL [facility] RBC, UA 1 /HPF [facility] WBC, UA 0 /HPF [facility] Mucus Occasional [facility] Squam Epithel, UA <1 /HPF [facility] Hyaline Casts, UA 7 /LPF [facility] Specimen Source [facility] Specimen Urine Performing Organization Address [facility] Centercode Phone Number [address] [address] [phone] [place] Fibrinogen (05/10/2018 1:58 PM INDUSTRIAL ELECTRICAL TECHNICIAN) Fibrinogen 163 (L) 225 - 434 mg/dl [facility] Specimen Blood Performing Organization Address [facility] Phone Number [address] [address] [place] Platelet count (05/10/2018 1:58 PM INDUSTRIAL ELECTRICAL TECHNICIAN) Platelets 67 (L) 150 - 450 K/CU MM [facility] Specimen Blood Performing Organization Address City/[facility] Phone Number [address] [address] [phone] CENTER Testosterone, free + total (05/10/2018 1:58 PM INDUSTRIAL ELECTRICAL TECHNICIAN) Testosterone 216 (L) 250 - 1100 ng/dL [facility] Testosterone, Free 12.2 (L) 35.0 - 155.0 [facility] Comment: pg/mL [facility] Data from J Clin Invest 1974:53:819-828 and J Clin Endocrinol Metab 1973;36:3853-6871. Men with clinically significant hypogonadal symptoms and testosterone values repeatedly in the range of the 200-300 ng/dL or less, may benefit from testosterone treatment after adequate risk and benefits counseling. For additional information, please refer to http://education.[employer]/faq/KJW479 (This link is being provided for informational/ educational purposes only.) This test was developed and its analytical performance characteristics have been determined by [employer] [place]. It has not been cleared or approved by the US Food and Drug Administration. This assay has been validated pursuant to the CLIA regulations and is used for clinical purposes. Specimen Blood Narrative Performed At Performing Lab [facility] *[facility], [address] [place] [phone] Dinesh Madrid MD, PhD Performing Organization Address City/State/Zipcode Phone Number [employer] [facility], [place] [address] [address] [facility] Uric acid (05/10/2018 1:58 PM INDUSTRIAL ELECTRICAL TECHNICIAN) Uric Acid 4.2 2.6 - 7.2 mg/dL [facility] Specimen Blood Narrative Performed At Specimen [facility] Performing Organization Address City/State/Zipcode Phone Number [address] [address] CENTER T3 (05/10/2018 1:58 PM INDUSTRIAL ELECTRICAL TECHNICIAN) T3, Total 78 48 - 159 ng/dL [facility] ([facility]) Specimen Blood Narrative Performed At Performing Organization Address City/State/Zipcode Phone Number [facility]) Transferrin (05/10/2018 1:58 PM INDUSTRIAL ELECTRICAL TECHNICIAN) Transferrin 202 174 - 382 mg/dL [facility] Specimen Blood Narrative Performed At [facility] Performing Organization Address City/State/Zipcode Phone Number [address] [address] CENTER TSH (05/10/2018 1:58 PM INDUSTRIAL ELECTRICAL TECHNICIAN) TSH 3.09 0.35 - 4.94 uIU/mL [facility] Specimen Blood Performing Organization Address City/[facility]/Zipcode Phone Number [address] [address] CENTER T4 (05/10/2018 1:58 PM INDUSTRIAL ELECTRICAL TECHNICIAN) T4, Total 7.1 4.9 - 11.7 ug/dL [facility] Specimen Blood Performing Organization Address City/[facility] Phone Number [address] [address] [place] PSA (05/10/2018 1:58 PM INDUSTRIAL ELECTRICAL TECHNICIAN) PSA 0.1 0.0 - 4.0 ng/mL [facility] Specimen Blood Performing Organization Address [facility] Phone Number [address] [address] [place] Phosphorus (05/10/2018 1:58 PM INDUSTRIAL ELECTRICAL TECHNICIAN) Phosphorus 2.8 2.3 - 4.7 mg/dL [facility] Specimen Blood Performing Organization Address [facility] Phone Number [address] [address] [phone] [place] Magnesium (05/10/2018 1:58 PM INDUSTRIAL ELECTRICAL TECHNICIAN) Magnesium 1.4 (L) 1.6 - 2.6 mg/dL [facility] Specimen Blood Performing Organization Address City/[facility] Phone Number [address] [address] [place] Hemoglobin A1c (05/10/2018 1:58 PM INDUSTRIAL ELECTRICAL TECHNICIAN) Hemoglobin A1C 5.3 4.3 - 6.1 % [facility] Specimen Blood Performing Organization Address [facility] Cent[facility]ode Phone Number [address] [address] CENTER Gamma Glutamyl Transferase (GGT) (05/10/2018 1:58 PM INDUSTRIAL ELECTRICAL TECHNICIAN) GGT 58 9 - 64 U/L [facility] Specimen Blood Narrative Performed At Specimen moderately icteric [facility] Performing Organization Address City/[facility] Phone Number [address] [address] [place] Bilirubin, direct (05/10/2018 1:58 PM INDUSTRIAL ELECTRICAL TECHNICIAN) Bilirubin, Direct 3.2 (H) 0.1 - 0.5 mg/dL [facility] Specimen Blood Performing Organization Address [facility] Phone Number [address] [address] CENTER Ethanol (05/10/2018 1:58 PM INDUSTRIAL ELECTRICAL TECHNICIAN) Ethanol Lvl <10 <=10 mg/dL [facility] Specimen Blood Performing Organization Address [facility] Phone Number [address] [address] [place] Lipid panel (05/10/2018 1:58 PM INDUSTRIAL ELECTRICAL TECHNICIAN) Triglycerides 102 mg/dL [facility] Cholesterol 167 mg/dL [facility] HDL 31 mg/dL [facility] LDL Calculated 116 mg/dL [facility] Specimen Blood Narrative Performed At Triglyceride Reference Range: [facility] Low Risk <150 [id number] High Risk 200-499 Very High Risk>=500 Cholesterol Reference Range: Low Risk <200 [id number] High Risk>240 HDL Cholesterol Reference Range: Low Risk >=60 High Risk <40 LDL Cholesterol Reference Range: Optimal<100 Near [id number] Very High >=190 Specimen moderately icteric Performing Organization Address [facility] Cent[facility] Phone Number [address] [address] CENTER Comprehensive metabolic panel (05/10/2018 1:58 PM INDUSTRIAL ELECTRICAL TECHNICIAN)Only the most recent of2 resultswithin the time period is included. Protein, Total 6.7 6.0 - 8.3 gm/dL [facility] Albumin 3.0 (L) 3.5 - 5.0 g/dL [facility] Alkaline Phosphatase 102 40 - 150 U/L [facility] Total Bilirubin 6.4 (H) 0.2 - 1.2 mg/dL [facility] Sodium 137 136 - 145 meq/L [facility] Potassium 3.8 3.5 - 5.1 meq/L [facility] Chloride 101 98 - 107 meq/L [facility] CO2 27 22 - 29 meq/L [facility] BUN 14 7 - 21 mg/dL [facility] Creatinine 1.13 0.57 - 1.25 mg/dL [facility] Glucose 157 (H) 70 - 105 mg/dL [facility] Calcium 9.2 8.4 - 10.2 mg/dL [facility] AST 80 (H) 5 - 34 U/L [facility] ALT 31 6 - 55 U/L [facility] EGFR 68Comment: ESTIMATED GFR mL/min/1.73 sq m [facility] IS NOT ACCURATE [facility] CREATININE CLEARANCE IN PREDICTING GLOMERULAR FILTRATION RATE. ESTIMATED GFR IS NOT APPLICABLE FOR DIALYSIS PATIENTS. Specimen Blood Narrative Performed At Specimen moderately icteric [facility] Performing Organization Address City/State/Zipcode Phone Number [facility] [address] [place] [address] CENTER XR dxa bone density study (05/10/2018 1:05 PM INDUSTRIAL ELECTRICAL TECHNICIAN) Narrative Performed At FINAL REPORT [employer] Bone mineral density study, 05/10/2018. CLINICAL INDICATION: Liver transplant evaluation. COMPARISON: None. IMPRESSION: Bone densitometry of the femoral necks and lumbar spine was performed. The left femoral neck bone mineral density is 0.921 gm/cm2, the T-score is -1.1, and the Z-score is -0.8. The right femoral neck total bone mineral density is 0.898 gm/cm2, the T-score is -1.3, and the Z-score is -0.9. The lumbar spine total bone mineral density is 1.029 gm/cm2, the T-score is -1.6, and the Z-score is -1.9. Signed: Kevin Ferraro MD Report Verified Date/Time:05/10/2018 14:07:03 Reading Location: [address] Radiology Reading Room Procedure Note Interface, External Ris In - 05/10/2018 2:09 PM INDUSTRIAL ELECTRICAL TECHNICIAN FINAL REPORT Bone mineral density study, 05/10/2018. CLINICAL INDICATION: Liver transplant evaluation. COMPARISON: None. IMPRESSION: Bone densitometry of the femoral necks and lumbar spine was performed. The left femoral neck bone mineral density is 0.921 gm/cm2, the T-score is -1.1, and the Z-score is -0.8. The right femoral neck total bone mineral density is 0.898 gm/cm2, the T-score is -1.3, and the Z-score is -0.9. The lumbar spine total bone mineral density is 1.029 gm/cm2, the T-score is -1.6, and the Z-score is -1.9. Signed: Kevin Ferraro MD Report Verified Date/Time: 05/10/2018 14:07:03 Reading Location: [address] Radiology Reading Room Performing Organization Address City/State/Zipcode Phone Number [facility] XR chest 2 views (05/10/2018 12:52 PM INDUSTRIAL ELECTRICAL TECHNICIAN) Narrative Performed At FINAL REPORT [facility] Chest, PA and lateral. History: Liver transplant evaluation. Comparison: None available. Discussion:The cardiomediastinal silhouette and pulmonary vasculature are within normal limits. The lungs are clear without evidence of consolidation or effusion.There are no acute osseous abnormalities. The soft tissues are unremarkable. IMPRESSION: No acute cardiopulmonary abnormality. Signed: Kevin Ferraro MD Report Verified Date/Time:05/10/2018 14:08:04 Reading Location: [address] Radiology Reading Room Procedure Note Interface, External Ris In - 05/10/2018 2:10 PM INDUSTRIAL ELECTRICAL TECHNICIAN FINAL REPORT Chest, PA and lateral. History: Liver transplant evaluation. Comparison: None available. Discussion: The cardiomediastinal silhouette and pulmonary vasculature are within normal limits. The lungs are clear without evidence of consolidation or effusion. There are no acute osseous abnormalities. The soft tissues are unremarkable. IMPRESSION: No acute cardiopulmonary abnormality. Signed: Kevin Ferraro MD Report Verified Date/Time: 05/10/2018 14:08:04 Reading Location: [address] Radiology Reading Room Performing Organization Address [facility] Phone Number GE [facility] XR mandible 4 views min (05/10/2018 12:51 PM INDUSTRIAL ELECTRICAL TECHNICIAN) Narrative Performed At FINAL REPORT [facility] Mandible series, five images HISTORY: Liver transplant evaluation COMPARISON: None IMPRESSION: Intact mandible. Normal osseous mineralization. Soft tissues unremarkable. Signed: Kevin Ferraro MD Report Verified Date/Time:05/10/2018 14:08:46 Reading Location: [address] [facility] Radiology Reading Room Procedure Note Interface, External Ris In - 05/10/2018 2:10 PM INDUSTRIAL ELECTRICAL TECHNICIAN FINAL REPORT Mandible series, five images HISTORY: Liver transplant evaluation COMPARISON: None IMPRESSION: Intact mandible. Normal osseous mineralization. Soft tissues unremarkable. Signed: Kevin Ferraro MD Report Verified Date/Time: 05/10/2018 14:08:46 Reading Location: [address] Radiology Reading Room Performing Organization Address City/State/Zipcode Phone Number [facility] Blood gas, arterial (05/10/2018 9:20 AM INDUSTRIAL ELECTRICAL TECHNICIAN) pH, Arterial 7.47 (H) 7.35 - 7.45 [facility] pCO2, Arterial 39 35 - 45 mmHg [facility] pO2, Arterial 82 80 - 90 mmHg [facility] O2 Sat, Arterial 96.8 96.0 - 97.0 % [facility] HCO3, Arterial 28 21 - 29 mmol/L [facility] Base Excess, Arterial 3.7 (H) -2.0 - 3.0 mmol/L [facility] Patient Temperature 36.5 C [facility] FIO2 40.0 % [facility] Specimen Blood, Arterial Performing Organization Address City/[facility]/Zipcode Phone Number [place] [phone] [place] [address] [phone] [place] [address] MR abdomen with/without IV contrast (05/10/2018 8:32 AM INDUSTRIAL ELECTRICAL TECHNICIAN) Narrative Performed At FINAL REPORT [facility] History: Pretransplant evaluation for liver transplant Comparison: Outside MRI dated 01/16/2018 Technique : Multiplanar imaging with multiple sequences of the abdomen was performed utilizing a 1.5 fide magnet with and without the administration of gadolinium contrast. Comment: There are partially visualized bilateral pleural effusions. There are no focal or diffuse abnormalities of the osseous structures. There is a partially visualized midline likely ventral hernia containing some fluid as well as fat. The adrenal glands, kidneys, pancreas, stomach, and duodenum are within normal limits. There is no abdominal or retroperitoneal lymphadenopathy. The visualized portions of the large and small bowel are within normal limits. There is a severe degree of hepatic cirrhosis. No definite suspicious enhancing hepatic lesions are seen. There is marked splenomegaly. There is a moderate amount of abdominal ascites/free fluid. The portal vein measures up to a maximum of 2.1 cm in diameter. There is no portal, splenic, or superior mesenteric vein thrombosis. There is a recanalized periumbilical vein. 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 Impression: 1. Examination limited secondary to artifact, probably due to the presence of the abdominal ascites, as well as motion on some of the sequences. 2. Hepatic cirrhosis. No definite suspicious enhancing hepatic lesions are seen taking into consideration the limitations above. 3. Splenomegaly with findings of portal hypertension. 4. Partially visualized bilateral pleural effusions. Signed: Dino Chow MD Report Verified Date/Time:05/10/2018 09:09:13 Reading Location: [facility] Diagnostic Imaging Reading Room - [place] [address] Procedure Note Interface, External Ris In - 05/10/2018 9:11 AM INDUSTRIAL ELECTRICAL TECHNICIAN FINAL REPORT History: Pretransplant evaluation for liver transplant Comparison: Outside MRI dated 01/16/2018 Technique : Multiplanar imaging with multiple sequences of the abdomen was performed utilizing a 1.5 fide magnet with and without the administration of gadolinium contrast. Comment: There are partially visualized bilateral pleural effusions. There are no focal or diffuse abnormalities of the osseous structures. There is a partially visualized midline likely ventral hernia containing some fluid as well as fat. The adrenal glands, kidneys, pancreas, stomach, and duodenum are within normal limits. There is no abdominal or retroperitoneal lymphadenopathy. The visualized portions of the large and small bowel are within normal limits. There is a severe degree of hepatic cirrhosis. No definite suspicious enhancing hepatic lesions are seen. There is marked splenomegaly. There is a moderate amount of abdominal ascites/free fluid. The portal vein measures up to a maximum of 2.1 cm in diameter. There is no portal, splenic, or superior mesenteric vein thrombosis. There is a recanalized periumbilical vein. 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 Impression: 1. Examination limited secondary to artifact, probably due to the presence of the abdominal ascites, as well as motion on some of the sequences. 2. Hepatic cirrhosis. No definite suspicious enhancing hepatic lesions are seen taking into consideration the limitations above. 3. Splenomegaly with findings of portal hypertension. 4. Partially visualized bilateral pleural effusions. Signed: Dino Chow MD Report Verified Date/Time: 05/10/2018 09:09:13 Reading Location: [facility] Diagnostic Imaging Reading Room - [place] [address] Performing Organization Address City/State/Zipcode Phone Number [facility] Basic Metabolic Panel (05/01/2018 1:02 PM INDUSTRIAL ELECTRICAL TECHNICIAN)Only the most recent of2 resultswithin the time period is included. Glucose 167 (H) 65 - 139 mg/dL [facility] Comment: Non-fasting reference interval BUN 11 7 - 25 mg/dL [facility] Creatinine 1.00 0.70 - 1.33 mg/dL [facility] Comment: For patients >49 years of age, the reference limit for Creatinine is approximately 13% higher for people identified as -Tajik. eGFR If NonAfricn Am 86 > OR=60 mL/min/1.73m2 [facility] eGFR If Africn Am 99 > OR=60 mL/min/1.73m2 [facility] BUN/Creatinine Ratio NOT APPLICABLE 6 - 22 (calc) [facility] Sodium 137 135 - 146 mmol/L [facility] Potassium, Serum 3.9 3.5 - 5.3 mmol/L [facility] Chloride 103 98 - 110 mmol/L [facility] Carbon Dioxide, Total 29 20 - 32 mmol/L [facility] Calcium, Serum 8.0 (L) 8.6 - 10.3 mg/dL [facility] Specimen Blood Narrative Performed At FASTING:NO [facility] FASTING: NO Resulting Agency Comment Performing Organization Information: Site ID: [id number] Name: [facility] Address: [address] [place] [id number] Director: Salome Smyth Performing Organization Address [facility] Cent[facility]ode Phone Number [facility] [address] [place] [address] [facility] Lactic acid, venous, whole blood (04/04/2018 2:40 PM INDUSTRIAL ELECTRICAL TECHNICIAN) Lactate, Venous 3.0 (H) 0.5 - 2.2 mmol/L [facility] Specimen Blood Narrative Performed At Specimen slightly icteric [facility] Performing Organization Address [facility]/Zipcode Phone Number [facility] [address] [place] [address] CENTER Zinc (04/04/2018 2:40 PM INDUSTRIAL ELECTRICAL TECHNICIAN) Zinc 57 (L) 60 - 130 mcg/dL [facility] Comment: INCORPORATED This test was developed and its analytical performance characteristics have been determined by [facility]. It has not been cleared or approved by the US Food and Drug Administration. This assay has been validated pursuant to the CLIA regulations and is used for clinical purposes. Specimen Blood Narrative Performed At Performing Lab [facility] *[facility], [address] [place] [address] Dinesh Madrid MD, PhD Performing Organization Address City/[facility]/Zipcode Phone Number [employer] [facility], [place] [address] [facility] Pro-time/INR (04/04/2018 2:40 PM INDUSTRIAL ELECTRICAL TECHNICIAN)Only the most recent of2 resultswithin the time period is included. Protime 17.2 (H) 11.7 - 14.7 seconds [facility] INR 1.4 <=5.9 [facility] Specimen Blood Narrative Performed At RECOMMENDED COUMADIN/WARFARIN INR THERAPY [facility] RANGES STANDARD DOSE: 2.0 - 3.0 Includes: PROPHYLAXIS for venous thrombosis, systemic embolization; TREATMENT for venous thrombosis and/or pulmonary embolus. HIGH RISK: Target INR is 2.5-3.5 for patients with mechanical heart valves. Performing Organization Address City/[facility]/Zipcode Phone Number [facility] [address] [place] [address] [phone] CENTER Hepatic function panel (04/04/2018 2:40 PM INDUSTRIAL ELECTRICAL TECHNICIAN) Protein, Total 6.6 6.0 - 8.3 gm/dL [facility] Albumin 2.8 (L) 3.5 - 5.0 g/dL [facility] Total Bilirubin 3.5 (H) 0.2 - 1.2 mg/dL [facility] Bilirubin, Direct 2.0 (H) 0.1 - 0.5 mg/dL [facility] Alkaline Phosphatase 121 40 - 150 U/L [facility] AST 46 (H) 5 - 34 U/L [facility] ALT 26 6 - 55 U/L [facility] Specimen Blood Narrative Performed At Specimen slightly icteric [facility] Performing Organization Address City/[facility]/Zipcode Phone Number [facility] [address] [place], [place] [phone] CENTER POC-Glucose meter (03/30/2018 11:45 AM CDT)Only the most recent of2 resultswithin the time period is included. POC-Glucose Meter 159 (H)Comment: TESTED AT 70 - 110 mg/dL [facility] [address] [place] [address] Specimen Blood Performing Organization Address City/[facility] Centercode Phone Number [address] [address] CENTER REPORT OF PROCEDURE - ENDOSCOPY URL (03/30/2018 11:34 AM CDT) Narrative Performed At Tissue Exam (03/30/2018 11:24 AM CDT) Case Report Surgical Pathology Report Case: [id number] [facility] Authorizing Provider:Chinmay Chacon MD Collected: 03/30/[address] [place] [address] Ordering Location: [facility] Endoscopy Received: 03/30/2018 1422 Services Pathologist: Irma Aguilar MD Specimen:Stomach, Random stomach biopsy DIAGNOSIS STOMACH, RANDOM, BIOPSY: [facility] - CHRONIC INACTIVE GASTRITIS, MILD [facility] - NEGATIVE FOR INTESTINAL METAPLASIA - WARTHIN STARRY STAIN NEGATIVE FOR H.PYLORI-LIKE MICROORGANISMS Signing Pathologist Direct Phone Line: [phone] CPT Code(s) 77802, 184[address] [facility] CLINICAL HISTORY Esophageal varices without [facility] bleeding [facility] SPECIMEN SOURCE Random stomach biopsy [facility] GROSS DESCRIPTION Received in formalin labeled [facility] "stomach" is a single [facility] fragment measuring 0.5 cm in greatest dimension. Entirely submitted A1. DB/pl MICROSCOPIC DESCRIPTION Performed. [facility] Specimen Tissue - Stomach Performing Organization Address [facility] Centercoia Phone Number [address] [address] [place] Hepatitis A antibody, IgG (02/23/2018 11:57 AM CDT) Hep A IgG Reactive (A) Nonreactive [facility] Specimen Blood Performing Organization Address [facility] Centercoia Phone Number [address] [address] [phone] [place] Alpha fetoprotein (AFP), tumor marker (02/23/2018 11:57 AM CDT) Alpha-Fetoprotein 3.7 <10.0 ng/mL [facility] Specimen Blood Performing Organization Address [facility] Phone Number [address] [address] [place] Hepatitis B core antibody, total (02/23/2018 11:57 AM CDT) Hep B Core Total Ab NON-REACTIVE Nonreactive [facility] Specimen Blood Performing Organization Address [facility] Phone Number [address] [address] CENTER Ferritin (02/23/2018 11:57 AM CDT) Ferritin 91 5 - 275 ng/mL [facility] Specimen Blood Performing Organization Address [facility] Phone Number [address] [address] CENTER Carcinoembryonic Antigen (CEA) (02/23/2018 11:57 AM CDT) CEA, SERUM 4.4 0.0 - 5.0 ng/mL [facility] Specimen Blood Performing Organization Address [facility] Phone Number [address] [address] [place] Anti-Mitochondrial Ab, reflex to titer (02/23/2018 11:56 AM CDT) Scan Result [facility] Specimen Blood Narrative Performed At Performing Organization Address City/[facility]/Zipcode Phone Number [facility] [place] [address] INCORPORATED [address] [address] [facility] Iron, TIBC, % sat. (without ferritin) (02/23/2018 11:56 AM CDT) Iron 100 40 - 160 ug/dL [facility] TIBC 220 (L) 250 - 450 ug/dL [facility] Iron % Saturation 45 20 - 55 % [facility] Specimen Blood Performing Organization Address [facility] Phone Number [facility] [address] [place] [phone] CENTER Hepatitis C antibody (02/23/2018 11:56 AM CDT) Hepatitis C Ab NON-REACTIVE Nonreactive [facility] Specimen Blood Performing Organization Address [facility] Center[facility] Phone Number [facility] [address] [place], [place] [phone] CENTER Actin (Smooth Muscle) Antibody, IgG (02/23/2018 11:56 AM CDT) Anti-Smooth Muscle Ab <20 See Note: U [facility] Comment: INCORPORATED Reference Range: <20 NEGATIVE > OR=20 POSITIVE Antibodies recognizing actin are the main component of smooth muscle antibodies associated with autoimmune liver disease. Actin antibodies are found in approximately 75% of patients with autoimmune hepatitis (AIH) type 1, approximately 65% of patients with autoimmune cholangitis, approximately 30% of patients with primary biliary cirrhosis, and approximately 2% of healthy people. High values are closely correlated with AIH type 1. Specimen Blood Narrative Performed At Performing Lab [facility] [employer] [place] [address] [place] [address] Aide Monteiro MD, PhD, JUAN CARLOS Performing Organization Address City/[facility] Centercode Phone Number [facility] [place] [address] [facility] [id number] (02/23/2018 11:56 AM CDT) A-1 Antitrypsin 131.40 90.00 - 200.00 mg/dL [facility] Specimen Blood Performing Organization Address City/[facility]/Zipcode Phone Number [facility] [address] [place] [address] CENTER Carbohydrate antigen 19-9 (CA 19-9) (02/23/2018 11:56 AM CDT) CA 19-9 41 (H) <34 U/mL [facility] Comment: This test was performed using the Siemens (Work4) Chemiluminescent method. Values obtained from different assay methods cannot be used interchangeably. CA19-9 levels, regardless of value, should not be interpreted as absolute evidence of the presence or absence of disease. Specimen Blood Narrative Performed At Performing Lab [facility] [address] [place] [address] Aide Monteiro MD, PhD, JUAN CARLOS Performing Organization Address [facility]/Zipcode Phone Number [place] [address] [address] [facility] Ceruloplasmin (02/23/2018 11:56 AM CDT) Ceruloplasmin 26 18 - 36 mg/dL [facility] Comment: Adults:Males: 18-36 mg/dL Females: 18-53 mg/dL Pediatrics:Males (mg/dL)Females (mg/dL) 0-30 Days 8-25 3-28 31 Days-11 Month 15-15-43 1-3 [id number] 4-6 [id number] 7-9 [id number] 10-12 [id number] 13-15 [id number] 16-18 [id number] The pediatric ranges are derived from the following criteria: Gabi RUDOLPH, Isa LOPEZ, Samantha Montiel et al Pediatric reference ranges for Vxtl-7-Dgqfwgkkrskja and ceruloplasmin. Clin. Chem 1997; 43:S1999 Pediatric Reference Ranges, 2nd., [place] Gabiet al. editors. [employer], [place], [place] 1997. Specimen Blood Narrative Performed At Performing Lab [facility] *S[facility], [address] [place] [address] Dinesh Madrid MD, PhD Performing Organization Address City/[facility] Centercode Phone Number [facility], [place] [address] [facility] Hepatitis B surface antibody (02/23/2018 11:56 AM CDT) Hep B S Ab <8.0 <8.0 mIU/mL [facility] Specimen Blood Performing Organization Address [facility] Centercode Phone Number [facility] [address] [place] [address] [phone] CENTER Hepatitis B surface antigen (02/23/2018 11:56 AM CDT) hepatitis B Surface Ag NON-REACTIVE Nonreactive [facility] Specimen Blood Performing Organization Address [facility] Centercode Phone Number [facility] [address] [place] [address] CENTER Anti-Nuclear Antibody (ANALIA) (02/23/2018 11:56 AM CDT) ANALIA Negative Negative [facility] Specimen Blood Narrative Performed At [facility] Test performed by IFA method. Test performed by IFA method. Performing Organization Address [facility] Centercode Phone Number [facility] [address] [place] [address] CENTER after 06/08/2017 Insurance Payer Benefit Plan / Group Subscriber ID Type Phone Address [employer] - [employer] CARE [employer] HMO POS [id number] xxxxxxxxx HMO/POS
--- OUTSIDE RECORDS SUMMARY | 2018-06-09 07:31 | XMS REPORT ---
:1965 [facility] Address [address] [place] [address] [address]. Sum[address] [place] [address] Care Team Providers Name Role Phone KARONMARIA ANDIE WOODRUFF Unavailable Unavailable JOSHUA PAL Unavailable Unavailable CARLOS BLACKBURN Unavailable Unavailable Problems This patient has no known problems. Allergies, Adverse Reactions, Alerts This patient has no known allergies or adverse reactions. Medications This patient has no known medications. Results Test Description Test Time Test Comments Text Results Atomic Results Result Comments T3 2018-05-15 07:35:00 Test Item Value Reference Range Comments T3 TOTAL (BEAKER) (test ijku=362) 78 ng/dL 48-159 CYTOMEGALOVIRUS ANTIBODY, [id number] 15:32:00 Test Item Value Reference Range Comments CYTOMEGALOVIRUS, IGG (BEAKER) (test noud=0545) Positive Negative, Equivocal CMV IgG Result Interpretation: </=0.8 Al Negative 0.9-1.0 Al Equivocal &gt ;/=1.1 Al PositiveCYTOMEGALOVIRUS ANTIBODY, [id number] 15:32:00 Test Item Value Reference Range Comments CYTOMEGALOVIRUS IGM ANTIBODY (BEAKER) (test Negative Negative, Equivocal patf=2814) CMV IgM Result Interpretation: </=0.8 Al Negative 0.9-1.0 Al Equivocal >/=1.1 Al PositiveEBV ANTIBODY, [id number] 15:32:00 Test Item Value Reference Range Comments DORA GERBER VIRAL CAPSID ANTIGEN IGG (BEAKER) Positive Negative, Equivocal (test hamz=9386) Dora Gerber Viral Capsid Antigen IgG Result Interpretation: </=0.8 Al Negative 0.9-1.0 Al Equivocal >/=1.1 Al PositiveEBV ANTIBODY, [id number] 15:32:00 Test Item Value Reference Range Comments DORA GERBER VIRAL CAPSID ANTIGEN IGM (BEAKER) Negative Negative, Equivocal (test cneu=3717) Dora Gerber Viral Capsid Antigen IgM Result Interpretation: </=0.8 Al Negative 0.9-1.0 Al Equivocal >/=1.1 Al [id number] 15:29:00 Test Item Value Reference Range Comments RPR SCREEN (BEAKER) (test xuim=485) Nonreactive Nonreactive CALCIUM, [id number] 15:43:00 Test Item Value Reference Range Comments CALCIUM IONIZED (BEAKER) (test iygz=539) 1.10 mmol/L 1.12-1.27 PH, BLOOD (BEAKER) (test idri=4892) 7.45 U/S, [id number] 09:31:00REFERRING MD: VIRAJ Recioinister 200 mL of albumin 25% (50 grams) IV x1 after paracentesis if 3 or more liters removed.Send ascitic fluid for cell count and differential, total protein.Reason for Exam:->Ascites, Portal HypertensionFINAL REPORT Ultrasound guided paracentesis, 05/10/2018. Clinical History: Ascites. Sedation: None. Armament Mechanic: Sophie. Actuarial Mathematician: None. Estimated Blood Loss: < 1 cc. Specimen: 5600 cc of clear yellow fluid, samples sent to laboratory. Technique: Informed consent was obtained. The risks of pain, bleeding, infection, bowel perforation, injury to adjacent structures, and adverse medication reactions were discussed with the patient. After informed consent was obtained, the patient's abdomen was scanned. The right upper quadrant of the abdomen wasselected for paracentesis. After the largest fluid pocket area was marked, and the anterior abdominal wall was evaluated with color Doppler to exclude presence of blood vessels traversing the area, the skin was prepped and draped in the usual sterile manner. After local anesthesia was achieved with 1% lidocaine, a 5 Welsh one-step catheter was advanced into the peritoneal cavity under ultrasound guidance. After completion of drainage, the catheter was removed. There was no evidence of complication. Patient Disposition: The patient was discharged from the ultrasound department after the paracentesis, in good condition. Impression: Successful ultrasound guided paracentesis. Signed: Italo Barrios Verified Date/Time: 05/11/2018 09:31:15 Reading Location: [facility] P[address] [facility] Body Reading Room Electronically signed by: ITALO BARRIOS M.D. on 2017 09:31 AMBODY FLUID CELL COUNT WITH [id number] 20:10:00 Test Item Value Reference Range Comments APPEARANCE FLUID (BEAKER) (test noom=846) Slightly Hazy Clear COLOR FLUID (BEAKER) (test dgms=708) Yellow Colorless, Straw RBC FLUID (BEAKER) (test syjt=319) 240 /cu mm <=1 ADJUSTED WBC FLUID (BEAKER) (test qaih=9907) 80 /cu mm <=5 LINING CELLS (BEAKER) (test prdp=7553) 0 /cu mm <=1 NEUTROPHILS FLUID (BEAKER) (test mbwr=4473) 2 % LYMPHS FLUID (BEAKER) (test zoyn=880) 54 % MONO/MACROPHAGE FLUID (BEAKER) (test 44 % vxfz=962) EOSINOPHILS FLUID (BEAKER) (test zppq=873) 0 % BASO FLUID (BEAKER) (test xueh=251) 0 % CONTAINER BODY FLUID (BEAKER) (test EDTA Tube emin=2632) PROTEIN, [id number] 19:54:00 Test Item Value Reference Range Comments TOTAL PROTEIN (BEAKER) (test qicq=404) < gm/dL 6.0-8.3 [id number] 19:26:00 Test Item Value Reference Range Comments PROSTATE SPECIFIC ANTIGEN (BEAKER) (test udtc=887) 0.1 ng/mL 0.0-4.0 HEPATITIS B CORE ANTIBODY, [id number] 19:26:00 Test Item Value Reference Range Comments HEPATITIS B CORE IGM ANTIBODY (BEAKER) (test Nonreactive Nonreactive kdtq=401) HEPATITIS A ANTIBODY, [id number] 19:26:00 Test Item Value Reference Range Comments HEPATITIS A IGM ANTIBODY (BEAKER) (test Nonreactive Nonreactive eshq=729) HIV-1 ANTIGEN WITH HIV-1/2 [id number] 19:26:00 Test Item Value Reference Range Comments HIV-1 ANTIGEN WITH HIV 1\\T\\2 ANTIBODY (2) Nonreactive Nonreactive (BEAKER) (test wptr=0775) URINALYSIS W/ [id number] 18:43:00 Test Item Value Reference Range Comments COLOR (BEAKER) (test onre=043) [place] CLARITY (BEAKER) (test dbuf=483) Clear SPECIFIC GRAVITY UA (BEAKER) (test zpbv=844) 1.033 1.001-1.035 PH UA (BEAKER) (test vmog=130) 5.5 5.0-8.0 PROTEIN UA (BEAKER) (test arcj=586) 20 mg/dL Negative GLUCOSE UA (BEAKER) (test ektt=113) Negative Negative KETONES UA (BEAKER) (test ikyv=527) 10 mg/dL Negative BILIRUBIN UA (BEAKER) (test xhlu=508) Positive Negative BLOOD UA (BEAKER) (test hqkq=161) Small Negative NITRITE UA (BEAKER) (test clvb=697) Negative Negative LEUKOCYTE ESTERASE UA (BEAKER) (test zjnm=343) Negative Negative UROBILINOGEN UA (BEAKER) (test jefw=768) 4.0 mg/dL 0.2-1.0 RBC UA (BEAKER) (test ohng=039) 1 /HPF WBC UA (BEAKER) (test rodn=685) 0 /HPF MUCUS (BEAKER) (test cnoz=9212) Occasional SQUAMOUS EPITHELIAL (BEAKER) (test wnqa=646) < /HPF HYALINE CASTS (BEAKER) (test uhoh=031) 7 /LPF SOURCE(BEAKER) (test rtiu=8193) [id number] 17:49:00 Test Item Value Reference Range Comments ETHANOL (BEAKER) (test qfli=002) < mg/dL <=10 [id number] 15:16:00 Test Item Value Reference Range Comments T4 TOTAL (BEAKER) (test kceu=687) 7.1 ug/dL 4.9-11.7 [id number] 15:09:00 Test Item Value Reference Range Comments THYROID STIMULATING HORMONE (BEAKER) (test 3.09 uIU/mL 0.35-4.94 pmas=828) VITAMIN D, [id number] 15:09:00 Test Item Value Reference Range Comments VITAMIN D 25-OH (BEAKER) (test ghfp=5993) 19.6 ng/mL 6.6-49.9 Effective 03/09/2017: Reference Range ChangeNew: 6.6-49.9 ng/mL Previous: 13.0 -47.8 ng/mLRecommended Vitamin D Target Range: 30.0-40.0 ng/mLHEMOGLOBIN [id number] 14:56:00 Test Item Value Reference Range Comments HEMOGLOBIN A1C (BEAKER) (test hjso=412) 5.3 % 4.3-6.1 [id number] 14:53:00 Test Item Value Reference Range Comments MAGNESIUM (BEAKER) (test hxhm=368) 1.4 mg/dL 1.6-2.6 [id number] 14:53:00 Test Item Value Reference Range Comments PHOSPHORUS (BEAKER) (test unoo=158) 2.8 mg/dL 2.3-4.7 URIC [id number] 14:53:00 Test Item Value Reference Range Comments URIC ACID (BEAKER) (test onna=746) 4.2 mg/dL 2.6-7.2 Specimen moderately ictericCOMPREHENSIVE METABOLIC [id number] 14:53:00 Test Item Value Reference Range Comments TOTAL PROTEIN (BEAKER) 6.7 gm/dL 6.0-8.3 (test dydv=832) ALBUMIN (BEAKER) (test 3.0 g/dL 3.5-5.0 jvst=2681) ALKALINE PHOSPHATASE 102 U/L 40-150 (BEAKER) (test dvzq=662) BILIRUBIN TOTAL (BEAKER) 6.4 mg/dL 0.2-1.2 (test zaev=768) SODIUM (BEAKER) (test 137 meq/L 136-145 vxxb=333) POTASSIUM (BEAKER) (test 3.8 meq/L 3.5-5.1 zmkh=141) CHLORIDE (BEAKER) (test 101 meq/L 98-107 jran=486) CO2 (BEAKER) (test 27 meq/L 22-29 wpfu=204) BLOOD UREA NITROGEN 14 mg/dL 7-21 (BEAKER) (test xvmb=464) CREATININE (BEAKER) (test 1.13 mg/dL 0.57-1.25 gsro=230) GLUCOSE RANDOM (BEAKER) 157 mg/dL 70-105 (test zodp=495) CALCIUM (BEAKER) (test 9.2 mg/dL 8.4-10.2 hien=671) AST (SGOT) (BEAKER) (test 80 U/L 5-34 yvfb=938) ALT (SGPT) (BEAKER) (test 31 U/L 6-55 lgoj=735) EGFR (BEAKER) (test 68 mL/min/1.73 sq m ESTIMATED GFR IS NOT wmdg=7720) ACCURATE CREATININE CLEARANCE IN PREDICTING GLOMERULAR FILTRATION RATE. ESTIMATED GFR IS NOT APPLICABLE FOR DIALYSIS PATIENTS. Specimen moderately ictericLIPID [id number] 14:53:00 Test Item Value Reference Range Comments TRIGLYCERIDES (BEAKER) (test qemp=633) 102 mg/dL CHOLESTEROL (BEAKER) (test pcah=668) 167 mg/dL HDL CHOLESTEROL (BEAKER) (test gnkc=209) 31 mg/dL LDL CHOLESTEROL CALCULATED (BEAKER) (test 116 mg/dL adpb=525) Triglyceride Reference Range: Low Risk <150 Borderline 150- 199 High Risk 200-499 Very High Risk >=500Cholesterol Reference Range: Low Risk <200 Borderline 200-239 High Risk > 240HDL Cholesterol Reference Range: Low Risk >=60 High Risk <40LDL Cholesterol Reference Range: Optimal <100 Near Optimal 100-129 Borderline 130-159 High 160-189 Very High >=190 Specimen moderatelyictericBILIRUBIN, [id number] 14:53:00 Test Item Value Reference Range Comments BILIRUBIN DIRECT (BEAKER) (test ebso=360) 3.2 mg/dL 0.1-0.5 GAMMA GLUTAMYL TRANSFERASE (GGT)2018-05-10 14:53:00 Test Item Value Reference Range Comments GAMMA GLUTAMYL TRANSFERASE (BEAKER) (test cfks=932) 58 U/L 9-64 Specimen moderately [id number] 14:49:00 Test Item Value Reference Range Comments FIBRINOGEN LEVEL (BEAKER) (test mkvg=135) 163 mg/dl 225-434 [id number] 14:48:00 Test Item Value Reference Range Comments TRANSFERRIN (BEAKER) (test jbfv=105) 202 mg/dL 174-382 Specimen moderately ictericPT/[id number] 14:47:00 Test Item Value Reference Range Comments PROTIME (BEAKER) (test uonz=561) 19.6 seconds 11.7-14.7 INR (BEAKER) (test iuoz=338) 1.7 <=5.9 PARTIAL THROMBOPLASTIN TIME (BEAKER) (test 35.4 seconds 22.5-36.0 ipbx=378) RECOMMENDED COUMADIN/WARFARIN INR THERAPY RANGESSTANDARD DOSE: 2.0 - 3.0 Includes: PROPHYLAXIS forvenous thrombosis, systemic embolization; TREATMENT for venous thrombosis and/or pulmonary embolus.HIGH RISK: Target INR is 2.5-3.5 for patients with mechanical heart valves.PLATELET [id number] 14:29:00 Test Item Value Reference Range Comments PLATELET COUNT (BEAKER) (test nbti=385) 67 K/CU MM 150-450 CBC W/PLT COUNT & AUTO [id number] 14:29:00 Test Item Value Reference Range Comments WHITE BLOOD CELL COUNT (BEAKER) (test cxiw=639) 3.9 K/ L 3.5-10.5 RED BLOOD CELL COUNT (BEAKER) (test czww=903) 3.68 M/ L 4.63-6.08 HEMOGLOBIN (BEAKER) (test qocj=716) 12.1 GM/DL 13.7-17.5 HEMATOCRIT (BEAKER) (test mszg=266) 36.4 % 40.1-51.0 MEAN CORPUSCULAR VOLUME (BEAKER) (test sbne=189) 98.9 fL 79.0-92.2 MEAN CORPUSCULAR HEMOGLOBIN (BEAKER) (test 32.9 pg 25.7-32.2 ubuh=141) MEAN CORPUSCULAR HEMOGLOBIN CONC (BEAKER) (test 33.2 GM/DL 32.3-36.5 eqmu=715) RED CELL DISTRIBUTION WIDTH (BEAKER) (test 14.9 % 11.6-14.4 jowq=199) PLATELET COUNT (BEAKER) (test bwdw=767) 67 K/CU MM 150-450 MEAN PLATELET VOLUME (BEAKER) (test caam=074) 10.4 fL 9.4-12.4 NUCLEATED RED BLOOD CELLS (BEAKER) (test 0 /100 WBC 0-0 czax=461) NEUTROPHILS RELATIVE PERCENT (BEAKER) (test 64 % leeu=259) LYMPHOCYTES RELATIVE PERCENT (BEAKER) (test 21 % ppps=698) MONOCYTES RELATIVE PERCENT (BEAKER) (test 9 % bqfo=565) EOSINOPHILS RELATIVE PERCENT (BEAKER) (test 5 % qpsx=199) BASOPHILS RELATIVE PERCENT (BEAKER) (test 1 % madc=481) NEUTROPHILS ABSOLUTE COUNT (BEAKER) (test 2.51 K/ L 1.78-5.38 edqt=129) LYMPHOCYTES ABSOLUTE COUNT (BEAKER) (test 0.81 K/ L 1.32-3.57 xxxt=092) MONOCYTES ABSOLUTE COUNT (BEAKER) (test hfjl=763) 0.34 K/ L 0.30-0.82 EOSINOPHILS ABSOLUTE COUNT (BEAKER) (test 0.18 K/ L 0.04-0.54 piwa=182) BASOPHILS ABSOLUTE COUNT (BEAKER) (test yzcq=606) 0.05 K/ L 0.01-0.08 IMMATURE GRANULOCYTES-RELATIVE PERCENT (BEAKER) 0 % 0-1 (test kfgm=8432) RAD, CHEST, 2 [id number] 14:08:00REFERRING MD: VIRAJ Rouse for Exam: ->ETOH, MARIANO, Pre-transplant evaluation for liver transplantFINAL REPORT Chest, PA and lateral. History: Liver transplant evaluation. Comparison: None available. Discussion: The cardiomediastinal silhouette and pulmonary vasculature are within normal limits. The lungs are clear without evidence of consolidation or effusion. There areno acute osseous abnormalities. The soft tissues are unremarkable. IMPRESSION: No acute cardiopulmonary abnormality. Signed: Kevin Ferraro Verified Date/Time : 05/10/2018 14:08:04 Reading Location: [address] Radiology Reading Room Electronically signed by: KEVIN FERRARO M.D.on 05/10/2018 02:08 PMRAD , MANDIBLE, MIN 4 [id number] 14:08:00REFERRING MD: VIRAJ Rouse for Exam:->ETOH, MARIANO, Pre-transplant evaluation for liver transplantFINAL REPORT Mandible series, five images HISTORY: Liver transplant evaluation COMPARISON: None IMPRESSION:Intact mandible. Normal osseous mineralization. Soft tissues unremarkable. Signed: Kevin Ferraro Verified Date/Time: 05/10/2018 14:08:46 Reading Location: [address] Radiology Reading Room 02:08 PMRAD, BONE DENSITY [id number] 14:07:00REFERRING MD : VIRAJ Rouse for Exam:->ETOH, MARIANO, Pre-transplant evaluation for liver transplantFINAL REPORT Bone mineral density study , 05/10/2018. CLINICAL INDICATION: Liver transplant evaluation. COMPARISON: None. IMPRESSION: Bone densitometry of the femoral necks andlumbar spine was performed. The left femoral neck bone mineral density is 0.921 gm/cm2, the T- score is -1.1, and the Z-score is -0.8. The right femoral neck total bone mineral density is 0.898 gm/cm2,the T-score is -1.3, and the Z-score is -0.9. The lumbar spine total bone mineral density is 1.029 gm/cm2, the T-score is -1.6 , and the Z-score is -1.9. Signed: Kevin Ferraro MDReport Verified Date/Time : 05/10/2018 14:07:03 Reading Location: [address] Radiology Reading Room BLOOD GAS, [id number] 09:22:00 Test Item Value Reference Range Comments PH ARTERIAL (BEAKER) (test qyrn=237) 7.47 7.35-7.45 PCO2 ARTERIAL (BEAKER) (test yvaz=858) 39 mmHg 35-45 PO2 ARTERIAL (BEAKER) (test rvxe=355) 82 mmHg 80-90 O2 SATURATION ARTERIAL (BEAKER) (test srtc=442) 96.8 % 96.0-97.0 HCO3 ARTERIAL (BEAKER) (test uoih=096) 28 mmol/L 21-29 BASE EXCESS ARTERIAL (BEAKER) (test jdqc=786) 3.7 mmol/L -2.0-3.0 PATIENT TEMPERATURE (BEAKER) (test sowq=6603) 36.5 C FIO2 (BEAKER) (test wxgx=2280) 40.0 % MR, ABDOMEN, [id number] 09:09:00REFERRING MD: VIRAJ MARIA REPORT History: Pretransplant evaluation for liver transplant Comparison: Outside MRI dated 01/16/2018 Technique : Multiplanar imaging with multiple sequences of the abdomenwas performed utilizing a 1.5 fide magnet with [...] portal vein measures up to a maximum of2.1 cm in diameter. There is no portal, [...] visualized bilateral pleural effusions. Signed: Dino Chow MDReport Verified Date/Time: 05/10/2018 09:09:13 Reading Location: [facility] Diagnostic Imaging Reading Room - [place] [address] Electronically signed by: DINO CHOW M.D. on 04/2018 09:09 AMBASIC METABOLIC [id number] 16:54:00 Test Item Value Reference Range Comments SODIUM (BEAKER) (test 137 meq/L 136-145 nzrp=161) POTASSIUM (BEAKER) (test 4.4 meq/L 3.5-5.1 ddbf=926) CHLORIDE (BEAKER) (test 105 meq/L 98-107 wgok=227) CO2 (BEAKER) (test 26 meq/L 22-29 tlww=770) BLOOD UREA NITROGEN 16 mg/dL 7-21 (BEAKER) (test sjva=289) CREATININE (BEAKER) (test 1.43 mg/dL 0.57-1.25 gdap=810) GLUCOSE RANDOM (BEAKER) 300 mg/dL 70-105 (test sizi=890) CALCIUM (BEAKER) (test 8.7 mg/dL 8.4-10.2 yzxd=782) EGFR (BEAKER) (test 52 mL/min/1.73 sq m ESTIMATED GFR IS NOT lcea=9427) ACCURATE CREATININE CLEARANCE IN PREDICTING GLOMERULAR FILTRATION RATE. ESTIMATED GFR IS NOT APPLICABLE FOR DIALYSIS PATIENTS. Specimen slightly ictericHEPATIC FUNCTION [id number] 16:54:00 Test Item Value Reference Range Comments TOTAL PROTEIN (BEAKER) (test dxmv=737) 6.6 gm/dL 6.0-8.3 ALBUMIN (BEAKER) (test ttpg=6387) 2.8 g/dL 3.5-5.0 BILIRUBIN TOTAL (BEAKER) (test cxet=233) 3.5 mg/dL 0.2-1.2 BILIRUBIN DIRECT (BEAKER) (test pirc=539) 2.0 mg/dL 0.1-0.5 ALKALINE PHOSPHATASE (BEAKER) (test njjk=061) 121 U/L 40-150 AST (SGOT) (BEAKER) (test ytoz=764) 46 U/L 5-34 ALT (SGPT) (BEAKER) (test gkim=442) 26 U/L 6-55 Specimen slightly ictericLACTIC ACID, VENOUS, WHOLE [id number] 16:46:00 Test Item Value Reference Range Comments LACTATE BLOOD VENOUS (2) (BEAKER) (test 3.0 mmol/L 0.5-2.2 cfny=3668) Specimen slightly ictericCBC W/PLT COUNT & AUTO [id number] 16:37 :00 Test Item Value Reference Range Comments WHITE BLOOD CELL COUNT (BEAKER) (test fxmm=518) 4.9 K/ L 3.5-10.5 RED BLOOD CELL COUNT (BEAKER) (test twwy=499) 3.39 M/ L 4.63-6.08 HEMOGLOBIN (BEAKER) (test gbhg=769) 11.1 GM/DL 13.7-17.5 HEMATOCRIT (BEAKER) (test dicg=055) 33.7 % 40.1-51.0 MEAN CORPUSCULAR VOLUME (BEAKER) (test vkdd=734) 99.4 fL 79.0-92.2 MEAN CORPUSCULAR HEMOGLOBIN (BEAKER) (test 32.7 pg 25.7-32.2 hnjs=093) MEAN CORPUSCULAR HEMOGLOBIN CONC (BEAKER) (test 32.9 GM/DL 32.3-36.5 asbh=942) RED CELL DISTRIBUTION WIDTH (BEAKER) (test 17.5 % 11.6-14.4 xtsn=680) PLATELET COUNT (BEAKER) (test dqdt=861) 65 K/CU MM 150-450 MEAN PLATELET VOLUME (BEAKER) (test bqyh=164) 10.7 fL 9.4-12.4 NUCLEATED RED BLOOD CELLS (BEAKER) (test 0 /100 WBC 0-0 wzcp=256) NEUTROPHILS RELATIVE PERCENT (BEAKER) (test 67 % yqlm=167) LYMPHOCYTES RELATIVE PERCENT (BEAKER) (test 15 % rcsg=255) MONOCYTES RELATIVE PERCENT (BEAKER) (test 7 % dswd=442) EOSINOPHILS RELATIVE PERCENT (BEAKER) (test 11 % pckv=017) BASOPHILS RELATIVE PERCENT (BEAKER) (test 1 % eovi=632) NEUTROPHILS ABSOLUTE COUNT (BEAKER) (test 3.27 K/ L 1.78-5.38 nrst=207) LYMPHOCYTES ABSOLUTE COUNT (BEAKER) (test 0.74 K/ L 1.32-3.57 prdn=154) MONOCYTES ABSOLUTE COUNT (BEAKER) (test adgr=117) 0.32 K/ L 0.30-0.82 EOSINOPHILS ABSOLUTE COUNT (BEAKER) (test 0.52 K/ L 0.04-0.54 ftxr=486) BASOPHILS ABSOLUTE COUNT (BEAKER) (test qndn=423) 0.05 K/ L 0.01-0.08 IMMATURE GRANULOCYTES-RELATIVE PERCENT (BEAKER) 0 % 0-1 (test quuu=1601) PROTHROMBIN TIME/[id number] 16:33:00 Test Item Value Reference Range Comments PROTIME (BEAKER) (test yhev=020) 17.2 seconds 11.7-14.7 INR (BEAKER) (test xigl=129) 1.4 <=5.9 RECOMMENDED COUMADIN/WARFARIN INR THERAPY RANGESSTANDARD DOSE: 2.0 - 3.0 Includes: PROPHYLAXIS forvenous thrombosis, systemic embolization; TREATMENT for venous thrombosis and/or pulmonary embolus.HIGH RISK: Target INR is 2.5-3.5 for patients with mechanical heart valves.TISSUE [id number] 19:26: 00Surgical Pathology Report Case: [id number] Authorizing Provider: Carlos Blackburn MD Collected : 03/30/2018 1124 Ordering Location: [facility] Endoscopy Received: 03/30/2018 1422 Services Pathologist: Irma Aguilar MD Specimen: Stomach, Random stomach biopsy STOMACH, RANDOM, BIOPSY: - CHRONIC INACTIVE GASTRITIS, MILD - NEGATIVE FOR INTESTINAL METAPLASIA - WARTHIN STARRY STAIN NEGATIVE FOR H.PYLORI-LIKE MICROORGANISMS Signing Pathologist Direct Phone Line: [phone] varices without bleedingRandom stomach biopsyReceived in formalin labeled "stomach" is a single fragment measuring 0.5 cm in greatest dimension. Entirely submitted A1. DB/plPerformed.POCT-GLUCOSE [id number] 11:47:00 Test Item Value Reference Range Comments POC-GLUCOSE METER (AKER) 159 mg/dL 70-110 TESTED AT [address] (test mghl=3518) [facility] [address] POCT-GLUCOSE [id number] 11:12:00 Test Item Value Reference Range Comments POC-GLUCOSE METER (AKER) 183 mg/dL 70-110 TESTED AT [address] (test xnwm=8912) [place] [id number] ANTI-MITOCHONDRIAL AB, REFLEX TO [id number] 09:09:00 Test Item Value Reference Range Comments SCAN RESULT (test mujw=[id number]) ANTI-NUCLEAR ANTIBODY (ANALIA)2018-02-24 06:53:00 Test Item Value Reference Range Comments ANTI-NUCLEAR ANTIBODY (ANALIA) (BEAKER) (test Negative Negative dsaf=769) Test performed by IFA method.Test performed by IFA method.CARCINOEMBRYONIC ANTIGEN (CEA)2018-02-23 14:56:00 Test Item Value Reference Range Comments CARCINOEMBRYONIC ANTIGEN (BEAKER) (test zint=608) 4.4 ng/mL 0.0-5.0 [id number] 14:56:00 Test Item Value Reference Range Comments FERRITIN (BEAKER) (test duce=417) 91 ng/mL 5-275 HEPATITIS A ANTIBODY, [id number] 14:17:00 Test Item Value Reference Range Comments HEPATITIS A IGG ANTIBODY (BEAKER) (test ekcg=5547) Reactive Nonreactive HEPATITIS B SURFACE [id number] 14:10:00 Test Item Value Reference Range Comments HEPATITIS B SURFACE ANTIBODY (BEAKER) (test < mIU/mL <8.0 zkcf=515) ALPHA FETOPROTEIN (AFP), TUMOR [id number] 14:09:00 Test Item Value Reference Range Comments ALPHA-FETOPROTEIN (BEAKER) (test cwxx=9546) 3.7 ng/mL <10.0 HEPATITIS B CORE ANTIBODY, [id number] 14:09:00 Test Item Value Reference Range Comments HEPATITIS B CORE TOTAL ANTIBODY (BEAKER) (test Nonreactive Nonreactive owyz=175) HEPATITIS B SURFACE [id number] 14:08:00 Test Item Value Reference Range Comments HEPATITIS B SURFACE ANTIGEN (2) (BEAKER) (test Nonreactive Nonreactive mjjd=5801) HEPATITIS C [id number] 14:08:00 Test Item Value Reference Range Comments HEPATITIS C ANTIBODY (BEAKER) (test uaye=702) Nonreactive Nonreactive COMPREHENSIVE METABOLIC [id number] 13:47:00 Test Item Value Reference Range Comments TOTAL PROTEIN (BEAKER) 6.9 gm/dL 6.0-8.3 (test afda=309) ALBUMIN (BEAKER) (test 2.9 g/dL 3.5-5.0 bjor=3444) ALKALINE PHOSPHATASE 166 U/L 40-150 (BEAKER) (test ksag=441) BILIRUBIN TOTAL (BEAKER) 5.1 mg/dL 0.2-1.2 (test prrd=601) SODIUM (BEAKER) (test 137 meq/L 136-145 ibec=164) POTASSIUM (BEAKER) (test 4.3 meq/L 3.5-5.1 kneq=138) CHLORIDE (BEAKER) (test 101 meq/L 98-107 elbk=565) CO2 (BEAKER) (test 27 meq/L 22-29 ahis=384) BLOOD UREA NITROGEN 12 mg/dL 7-21 (BEAKER) (test tkcu=423) CREATININE (BEAKER) (test 1.17 mg/dL 0.57-1.25 mflt=070) GLUCOSE RANDOM (BEAKER) 130 mg/dL 70-105 (test opel=500) CALCIUM (BEAKER) (test 9.2 mg/dL 8.4-10.2 qown=246) AST (SGOT) (BEAKER) (test 95 U/L 5-34 bvew=738) ALT (SGPT) (BEAKER) (test 36 U/L 6-55 tvgq=612) EGFR (BEAKER) (test 65 mL/min/1.73 sq m ESTIMATED GFR IS NOT stoa=8784) ACCURATE CREATININE CLEARANCE IN PREDICTING GLOMERULAR FILTRATION RATE. ESTIMATED GFR IS NOT APPLICABLE FOR DIALYSIS PATIENTS. Specimen moderately ictericIRON, TIBC, % SAT. (WITHOUT FERRITIN)[id number] 13:47 :00 Test Item Value Reference Range Comments IRON (BEAKER) (test sbya=257) 100 ug/dL 40-160 TOTAL IRON BINDING CAPACITY (BEAKER) (test 220 ug/dL 250-450 auow=487) IRON % SATURATION (2) (BEAKER) (test hsgr=1889) 45 % 20-55 [id number] 13:41:00 Test Item Value Reference Range Comments ALPHA-1 ANTITRYPSIN (BEAKER) (test yext=269) 131.40 mg/dL 90.00-200.00 CBC W/PLT COUNT & AUTO [id number] 13:17:00 Test Item Value Reference Range Comments WHITE BLOOD CELL COUNT (BEAKER) (test ddhb=276) 4.1 K/ L 3.5-10.5 RED BLOOD CELL COUNT (BEAKER) (test wkas=031) 4.00 M/ L 4.63-6.08 HEMOGLOBIN (BEAKER) (test tbcs=036) 12.0 GM/DL 13.7-17.5 HEMATOCRIT (BEAKER) (test upfy=533) 37.3 % 40.1-51.0 MEAN CORPUSCULAR VOLUME (BEAKER) (test zofx=744) 93.3 fL 79.0-92.2 MEAN CORPUSCULAR HEMOGLOBIN (BEAKER) (test 30.0 pg 25.7-32.2 uwtk=813) MEAN CORPUSCULAR HEMOGLOBIN CONC (BEAKER) (test 32.2 GM/DL 32.3-36.5 cing=992) RED CELL DISTRIBUTION WIDTH (BEAKER) (test 20.8 % 11.6-14.4 gblg=907) PLATELET COUNT (BEAKER) (test fjvh=056) 57 K/CU MM 150-450 MEAN PLATELET VOLUME (BEAKER) (test fxgt=600) 10.3 fL 9.4-12.4 NUCLEATED RED BLOOD CELLS (BEAKER) (test 0 /100 WBC 0-0 fslo=075) NEUTROPHILS RELATIVE PERCENT (BEAKER) (test 62 % ltnv=337) LYMPHOCYTES RELATIVE PERCENT (BEAKER) (test 22 % sxez=363) MONOCYTES RELATIVE PERCENT (BEAKER) (test 9 % rfke=046) EOSINOPHILS RELATIVE PERCENT (BEAKER) (test 5 % vhgf=768) BASOPHILS RELATIVE PERCENT (BEAKER) (test 2 % dtbf=574) NEUTROPHILS ABSOLUTE COUNT (BEAKER) (test 2.55 K/ L 1.78-5.38 ctll=035) LYMPHOCYTES ABSOLUTE COUNT (BEAKER) (test 0.90 K/ L 1.32-3.57 nxfq=811) MONOCYTES ABSOLUTE COUNT (BEAKER) (test gecy=425) 0.36 K/ L 0.30-0.82 EOSINOPHILS ABSOLUTE COUNT (BEAKER) (test 0.22 K/ L 0.04-0.54 agkt=299) BASOPHILS ABSOLUTE COUNT (BEAKER) (test vuqy=763) 0.07 K/ L 0.01-0.08 IMMATURE GRANULOCYTES-RELATIVE PERCENT (BEAKER) 0 % 0-1 (test bboq=6886) PROTHROMBIN TIME/[id number] 13:11:00 Test Item Value Reference Range Comments PROTIME (BEAKER) (test fqjb=988) 17.3 seconds 11.7-14.7 INR (BEAKER) (test kcno=618) 1.4 <=5.9 RECOMMENDED COUMADIN/WARFARIN INR THERAPY RANGESSTANDARD DOSE: 2.0 - 3.0 Includes: PROPHYLAXIS forvenous thrombosis, systemic embolization; TREATMENT for venous thrombosis and/or pulmonary embolus.HIGH RISK: Target INR is 2.5-3.5 for patients with mechanical heart valves.
[2018-06-09 08:05] LABS: Absolute Lymphocytes (CBC) 0.1 K/uL (0.7-4.9); Absolute Monocytes 0.8 K/uL (0.1-1.3); Basophils % 0.2 % (0-1.3); Eosinophils % 10.1 % (0-4.4); Hematocrit 34.4 % (39.6-49.0); Lymphocytes % 13.5 % (15.3-44.8); MPV 10.7 fL (7.6-11.3); Monocytes % 74.1 % (3.3-12.3); RBC Red Blood Cell Count 3.45 M/uL (4.33-5.43)
[2018-06-09] MEDS ORDERED: NA CHLORIDE 0.9% 500 ML ONE (08:08)
[2018-06-09] MEDS ORDERED: FENTANYL CITR 100 MCG/2 ML ONE ×2 (08:22→09:21)
[2018-06-09 08:27] LABS: Albumin 2.2 g/dL (3.4-5.0); Bilirubin Direct 4.7 mg/dL (0-0.2); Bilirubin Total 6.2 mg/dL (0.2-1.0); Potassium 3.1 mmol/L (3.5-5.1); Protein, Total 5.7 g/dL (6.4-8.2)
--- NOTE | 2018-06-09 08:53 | RAD REPORT ---
EXAM DESCRIPTION: USExtremity Venous Uni Ltd06/09/2018 8:12 am CLINICAL HISTORY: left leg pain COMPARISON: None. FINDINGS: Left common femoral, superficial femoral, popliteal and posterior tibial veins are compre ssible and demonstrate augmentation. Doppler demonstrates good flow. IMPRESSION: No evidence of deep venous thrombosis involving the left lower extremity.
[2018-06-09] MEDS ORDERED: NA CHLORIDE 0.9% 1,000 ML ONE ×2 (09:09→14:32)
[2018-06-09 09:10] LABS: Urine White Blood Cell Casts OK
[2018-06-09 09:11] LABS: Blood Morphology Comment NOT SEEN (NOT SEEN); Platelet Estimate DECR
--- NOTE | 2018-06-09 09:44 | RAD REPORT ---
EXAM DESCRIPTION: CT - Abdomen Pelvis Wo Contrast - 06/09/2018 9:23 am CLINICAL HISTORY: Abdominal pain COMPARISON: January 2018 TECHNIQUE: Computed axial tomography of the abdomen and pelvis was obtained. IV and oral contrast we re not requested. All CT scans are performed using dose optimization technique as appropriate and may include automated exposure control or mA/KV adjustment according to patient size. FINDINGS: The evaluation of solid organs, vessels and bowel is limited secondary to the lack of con trast administration. A cirrhotic liver. Spleen is moderately enlarged. The pancreas and adrenals appear unremarkable. The kidneys are dense. Small amount of contrast is pre sent within the bladder. There is no evidence of diverticulitis. Small umbilical hernia Small pleural effusions. Moderate amount of ascites. Diffuse edema within the subcutaneous tissues . Thickening of the wall entire colon Gallstones without gallbladder wall thickening Mild gastric distention IMPRESSION: Cirrhosis with moderate splenomegaly Thickening of the wall of the entire colon may be related to hypoalbuminemia or colitis Dense kidneys. Patient had IV contrast yesterday. This probably indicates diminished renal function
[2018-06-09] MEDS ORDERED: PIPER/TAZO/NS 3.375gm 3.375 GM/100 ML BAG ONE (10:09)
[2018-06-09] MEDS ORDERED: HYDROMORPHONE HCL 0.5 MG/0.5 ML INJ ONE (10:16)
--- NOTE | 2018-06-09 10:32 | ER ---
Nurse's Notes [facility] Name: Doug Jarvis Age: 52 yrs Sex: Male : 1965 Arrival Date: 06/09/2018 Time: 07:30 Bed 20 Private MD: Renard Mccarty V Diagnosis: Neutropenia due to infection;Dehydration;Acute kidney failure Presentation: 06/09 07:31 Acuity: [place]OOK[place] 2 tw2 07:31 Note Provider MALENA Foster at bedside at this time. tw2 07:31 Presenting complaint: Patient states: c/o left leg pain, pt had a heart cath yesterday em in the right leg and was cleared to be on the liver transplant list, pt c/o N/V/D for few days, denies fever. 07:31 Transition of care: patient was not received from another setting of care. Onset of em symptoms was June 08, 2018. Risk Assessment: Do you want to hurt yourself or someone else? Patient reports no desire to harm self or others. Initial Sepsis Screen: Does the patient meet any 2 criteria? HR > 90 bpm. No. Patient's initial sepsis screen is negative. Does the patient have a suspected source of infection? No. Patient's initial sepsis screen is negative. Care prior to arrival: None. 07:31 Method Of Arrival: Wheelchair em 07:49 Risk Assessment: Do you want to hurt yourself or someone else? Patient reports no tw2 desire to harm self or others. Triage Assessment: 07:52 General: Appears in no apparent distress. comfortable, ill, Behavior is calm, em cooperative, Denies fever. Pain: Complains of pain in left leg. Historical: - Allergies: 07:52 NKA; em - Home Meds: 14:08 atorvastatin 20 mg Oral tab 1 tab once daily [Active]; fenofibrate 145 MG Oral once em daily [Active]; lisinopril 40 mg Oral tab 1 tab once daily [Active]; Novolin 70/30 [place] IN INSULIN PUMP Sub-Q [Active]; pantoprazole 40 mg Oral chew 1 tab once daily [Active]; PROPANOLOL 20 MG twice a day [Active]; - PMHx: 07:52 Anemia; Diabetes - IDDM; diabetic related cirrhosis; Gall Stones; GERD; Hypertension; em - PSHx: 07:52 heart cath; em - Immunization history:: Flu vaccine is not up to date. - Social history:: Smoking status: Patient/guardian denies using tobacco. - Ebola Screening: : Patient denies travel to an Ebola-affected area in the 21 days before illness onset. Screenin:50 Abuse screen: Denies threats or abuse. Nutritional screening: No deficits noted. tw2 Tuberculosis screening: No symptoms or risk factors identified. Fall Risk Secondary diagnosis (15 points) impaired mobility. Assessment: 07:32 General: Appears in no apparent distress. comfortable, ill, Behavior is calm, em cooperative, Denies fever. Pain: Complains of pain in left leg. Neuro: Level of Consciousness is awake, alert, obeys commands, Oriented to person, place, time, situation. Cardiovascular: Denies chest pain. Respiratory: Airway is patent Respiratory effort is even, unlabored, Respiratory pattern is regular, symmetrical. GI: Abdomen is round Bowel sounds present X 4 quads. Abd is soft and non tender X 4 quads. Reports nausea, vomiting. : No signs and/or symptoms were reported regarding the genitourinary system. EENT: No signs and/or symptoms were reported regarding the EENT system. Derm: Skin is intact, Skin is pale. Musculoskeletal: Range of motion: intact in all extremities. 08:00 Reassessment: Patient appears in no apparent distress at this time. Patient and/or iw family updated on plan of care and expected duration. Pain level reassessed. I agree with above assessment by Gianfranco Shannon LVN. 08:30 Reassessment: Patient appears in no apparent distress at this time. Patient and/or em family updated on plan of care and expected duration. Pain level reassessed. Patient is alert, oriented x 3, equal unlabored respirations, skin warm/dry/pink. Patient states feeling better. 09:30 Reassessment: Patient appears in no apparent distress at this time. Patient and/or em family updated on plan of care and expected duration. Pain level reassessed. Patient is alert, oriented x 3, equal unlabored respirations, skin warm/dry/pink. 10:05 Reassessment: Patient and/or family updated on plan of care and expected duration. Pain em level reassessed. provider at bedside, reports pain in left leg, new medication orders received. 12:44 Reassessment: Patient appears in no apparent distress at this time. Patient and/or em family updated on plan of care and expected duration. Pain level reassessed. Patient is alert, oriented x 3, equal unlabored respirations, skin warm/dry/pink. pt reports medication helped for a little bit, provider notified. 13:50 Reassessment: Patient appears in no apparent distress at this time. Patient and/or em family updated on plan of care and expected duration. Pain level reassessed. Patient is alert, oriented x 3, equal unlabored respirations, skin warm/dry/pink. rates pain 4/10 Patient states feeling better. 15:23 Reassessment: Patient appears in no apparent distress at this time. Patient and/or em family updated on plan of care and expected duration. Pain level reassessed. Patient is alert, oriented x 3, equal unlabored respirations, skin warm/dry/pink. Vital Signs: 07:32 Temp 97.6(O); tw2 07:32 BP 96 / 52; Pulse 114; Resp 20; Pulse Ox 100% on R/A; Weight 88.45 kg; Height 6 ft. 1 em in. (185.42 cm); Pain 9/10; 08:02 BP 92 / 47; Pulse 102; Resp 19; Pulse Ox 100% on R/A; em 09:02 BP 99 / 51; Pulse 105; Resp 19; Pulse Ox 96% ; em 10:10 BP 109 / 55; Pulse 109; Resp 21; Pulse Ox 99% on R/A; em 10:40 BP 113 / 46; Pulse 112; Resp 19; Temp 97.5(O); Pulse Ox 100% on R/A; Pain 10/10; em 11:40 BP 105 / 47; Pulse 114; Resp 20; Pulse Ox 97% on R/A; Pain 10/10; em 12:45 BP 108 / 54; Pulse 117; Resp 16; Pulse Ox 99% on R/A; Pain 10/10; em 14:10 BP 112 / 58; Pulse 116; Resp 22; Pulse Ox 100% on R/A; Pain 6/10; em 15:23 BP 126 / 56; Pulse 113; Resp 18; Pulse Ox 100% on R/A; em 07:32 Body Mass Index 25.73 (88.45 kg, 185.42 cm) ED Course: 07:30 Patient arrived in ED. as 07:30 Renard Mccarty MD is Private Physician. as 07:31 Gianfranco Shannon LVN is Primary Nurse. em 07:31 Placed in gown. Bed in low position. Call light in reach. Adult w/ patient. Cardiac tw2 monitor on. Pulse ox on. NIBP on. 07:31 Arm band placed on. tw2 07:32 Cristian Ramirez PA is PHCP. jr8 07:32 Morgan Thompson MD is Attending Physician. jr8 07:40 Inserted saline lock: 22 gauge in right antecubital area, using aseptic technique. em Blood collected. 07:48 Triage completed. tw2 08:13 US Extremity Venous Unilateral Ltd In Process Unspecified. EDMS 09:11 X-ray completed. Portable x-ray completed in exam room. Patient tolerated procedure jb2 well. 09:12 XRAY Chest (1 view) In Process Unspecified. EDMS 09:21 CT completed. Patient tolerated procedure well. Patient moved to CT via stretcher. Patient moved back from CT. 09:22 CT Abd/Pelvis - Without Cont In Process Unspecified. EDMS 10:31 Renard Mccarty MD is Hospitalizing Provider. jr8 13:30 No provider procedures requiring assistance completed. Inserted saline lock: 22 gauge em in left hand, using aseptic technique. 15:32 Patient admitted, IV remains in place. em Administered Medications: 08:07 Drug: NS 0.9% 500 ml Route: IV; Rate: bolus; Site: right antecubital; em 08:44 Follow up: IV Status: Completed infusion; IV Intake: 500ml em 08:15 Drug: fentaNYL (PF) 50 mcg Route: IVP; Site: right antecubital; iw 08:44 Follow up: Response: No adverse reaction; Pain is decreased em 09:01 Drug: NS 0.9% 500 ml Route: IV; Rate: bolus; Site: right antecubital; em 10:33 Follow up: IV Status: Completed infusion; IV Intake: 500ml em 09:17 Drug: fentaNYL (PF) 50 mcg Route: IVP; Site: right antecubital; em 09:56 Follow up: Response: No adverse reaction; Pain is decreased em 10:01 Drug: NS 0.9% 1000 ml Route: IV; Rate: 100 ml/hr; Site: right antecubital; em 11:25 Follow up: IV Status: Completed infusion; IV Intake: 100ml em 10:04 Drug: Zosyn 3.375 grams Route: IVPB; Infused Over: 60 mins; Site: right antecubital; em 11:30 Follow up: Response: No adverse reaction; IV Status: Completed infusion; IV Intake: em 100ml 10:16 Drug: Dilaudid 0.5 mg Route: IVP; Site: right antecubital; iw 10:47 Follow up: Response: No adverse reaction; Pain is unchanged, physician notified em 10:45 Drug: Potassium Chloride 40 mEq Route: PO; em 11:25 Follow up: Response: No adverse reaction em 11:20 Drug: Valium 2.5 mg Route: IVP; Site: right antecubital; iw 11:50 Follow up: Response: No adverse reaction; Pain is unchanged, physician notified em 11:59 Drug: fentaNYL (PF) 50 mcg Route: IVP; Site: right antecubital; em 14:00 Follow up: Response: No adverse reaction; Pain is decreased em 12:52 Drug: Magnesium Sulfate 2 grams Route: IVPB; Infused Over: 2 hrs; Site: right em antecubital; 14:09 Follow up: Response: No adverse reaction; IV Status: Completed infusion; IV Intake: em 100ml 13:40 Drug: vancoMYCIN 1 grams Route: IVPB; Infused Over: 2 hrs; Site: left hand; em 15:30 Follow up: IV Status: Completed infusion; IV Intake: 200ml em 14:25 Drug: NS 0.9% 1000 ml Route: IV; Rate: 1000 ml; Site: right antecubital; em 15:31 Follow up: IV Status: Completed infusion; IV Intake: 1000ml em Point of Care Testing: Blood Glucose: 07:40 Blood Glucose: 126 mg/dL; em Ranges: Intake: 08:44 IV: 500ml; Total: 500ml. em 10:33 IV: 500ml; Total: 1000ml. em 11:25 IV: 100ml; Total: 1100ml. em 11:30 IV: 100ml; Total: 1200ml. em 14:09 IV: 100ml; Total: 1300ml. em 15:30 IV: 200ml; Total: 1500ml. em 15:31 IV: 1000ml; Total: 2500ml. em Outcome: 10:31 Decision to Hospitalize by Provider. primitivo 15:32 Admitted to Tele accompanied by tech, family with patient, via stretcher, room 430, em with chart, Report called to VALENTÍN Yee 15:32 Condition: good 15:32 Instructed on the need for admit, Demonstrated understanding of instructions. 15:39 Patient left the ED. em Signatures: Dispatcher [employer] EDMS Rolo Estrada jb2 Ottoniel Recinos Edgar, ASSEMBLER TRACTOR ASSEMBLER TRACTOR em Ana Miller Irene, RN RN Cristian Rehman PA PA jr8 Lauren Crawford RN RN tw2 Corrections: (The following items were deleted from the chart) 07:49 07:48 Acuity: [place]OOK[place] 2 tw2 tw2
--- NOTE | 2018-06-09 10:33 | RAD REPORT ---
EXAM DESCRIPTION: Manjinder Single View06/09/2018 9:12 am CLINICAL HISTORY: Shortness of breath COMPARISON: December 2017 FINDINGS: The lungs appear clear of acute infiltrate. The heart is normal size IMPRESSION: No acute abnormalities displayed
--- NOTE | 2018-06-09 10:33 | EDPHYS ---
Physician Documentation [facility] Name: Doug Jarvis Age: 52 yrs Sex: Male : 1965 Arrival Date: 06/09/2018 Time: 07:30 Bed 20 Private MD: Renard Mccarty V ED Physician Morgan Thompson HPI: 06/09 10:31 This 52 yrs old Male presents to ER via Wheelchair with complaints of Colitis jr8 Flare-Up. 10:31 Patient stated that for the past week has had n/v/d from colitis flare up. Saw PCP and jr8 started on flagyl. Has not been able to keep a lot of it down. Yesterday had angiogram done for clearance to be put on liver transplant for cirrhosis of the liver. Came to ED today for left leg pain and dehydration secondary to colitis. Severity of symptoms: At their worst the symptoms were moderate in the emergency department the symptoms are unchanged. It is unknown whether or not the patient has had similar symptoms in the past. The patient has been recently seen by a physician:. Historical: - Allergies: 07:52 NKA; em - Home Meds: 14:08 atorvastatin 20 mg Oral tab 1 tab once daily [Active]; fenofibrate 145 MG Oral once em daily [Active]; lisinopril 40 mg Oral tab 1 tab once daily [Active]; Novolin 70/30 [place] IN INSULIN PUMP Sub-Q [Active]; pantoprazole 40 mg Oral chew 1 tab once daily [Active]; PROPANOLOL 20 MG twice a day [Active]; - PMHx: 07:52 Anemia; Diabetes - IDDM; diabetic related cirrhosis; Gall Stones; GERD; Hypertension; em - PSHx: 07:52 heart cath; em - Immunization history:: Flu vaccine is not up to date. - Social history:: Smoking status: Patient/guardian denies using tobacco. - Ebola Screening: : Patient denies travel to an Ebola-affected area in the 21 days before illness onset. ROS: 10:31 Eyes: Negative for injury, pain, redness, and discharge, ENT: Negative for injury, jr8 pain, and discharge, Neck: Negative for injury, pain, and swelling, Cardiovascular: Negative for chest pain, palpitations, and edema, Respiratory: Negative for shortness of breath, cough, wheezing, and pleuritic chest pain, Back: Negative for injury and pain, Skin: Negative for injury, rash, and discoloration, Neuro: Negative for headache, weakness, numbness, tingling, and seizure. 10:31 Abdomen/GI: Positive for nausea, vomiting, and diarrhea, Negative for abdominal pain, abdominal cramps, abdominal distension, anorexia, dysphagia, hematemesis, black/tarry stool, rectal pain, rectal bleeding, bowel incontinence, flatulence. 10:31 MS/extremity: Positive for pain, of the left leg. Exam: 10:31 Head/Face: Normocephalic, atraumatic. Eyes: Pupils equal round and reactive to light, jr8 extra-ocular motions intact. Lids and lashes normal. Conjunctiva and sclera are non-icteric and not injected. Cornea within normal limits. Periorbital areas with no swelling, redness, or edema. ENT: Nares patent. No nasal discharge, no septal abnormalities noted. Tympanic membranes are normal and external auditory canals are clear. Oropharynx with no redness, swelling, or masses, exudates, or evidence of obstruction, uvula midline. Mucous membranes moist. Neck: Trachea midline, no thyromegaly or masses palpated, and no cervical lymphadenopathy. Supple, full range of motion without nuchal rigidity, or vertebral point tenderness. No Meningismus. Respiratory: Lungs have equal breath sounds bilaterally, clear to auscultation and percussion. No rales, rhonchi or wheezes noted. No increased work of breathing, no retractions or nasal flaring. Abdomen/GI: Soft, non-tender, with normal bowel sounds. Mild distention noted. No guarding or rebound. No evidence of tenderness throughout. Back: No spinal tenderness. No costovertebral tenderness. Full range of motion. Neuro: Awake and alert, GCS 15, oriented to person, place, time, and situation. Cranial nerves II-XII grossly intact. Motor strength 5/5 in all extremities. Sensory grossly intact. Cerebellar exam normal. Normal gait. 10:31 Skin: Warm, dry with normal turgor. Normal color with no rashes or lesions 10:31 Cardiovascular: Rate: tachycardic, Rhythm: regular, Pulses: Pulses are 2+ in right radial artery and left radial artery. Heart sounds: S3. 10:31 Musculoskeletal/extremity: Extremities: grossly normal except: noted in the left leg: Pain with ROM and mild tenderness to calf muscles, quads, and hamstring. No trauma noted. No bony tenderness. Full ROM intact with normal sensation , noted in the right leg: No pain with palpation but does have bruising to posterior and medial mid thigh down to knee. Single red streaking line noted form medial knee to hip region. Surgical site clean and without erythema. No dehiscence, bleeding, or exudate , Circulation is intact in all extremities. Sensation intact. Vital Signs: 07:32 Temp 97.6(O); tw2 07:32 BP 96 / 52; Pulse 114; Resp 20; Pulse Ox 100% on R/A; Weight 88.45 kg; Height 6 ft. 1 em in. (185.42 cm); Pain 9/10; 08:02 BP 92 / 47; Pulse 102; Resp 19; Pulse Ox 100% on R/A; em 09:02 BP 99 / 51; Pulse 105; Resp 19; Pulse Ox 96% ; em 10:10 BP 109 / 55; Pulse 109; Resp 21; Pulse Ox 99% on R/A; em 10:40 BP 113 / 46; Pulse 112; Resp 19; Temp 97.5(O); Pulse Ox 100% on R/A; Pain 10/10; em 11:40 BP 105 / 47; Pulse 114; Resp 20; Pulse Ox 97% on R/A; Pain 10/10; em 12:45 BP 108 / 54; Pulse 117; Resp 16; Pulse Ox 99% on R/A; Pain 10/10; em 14:10 BP 112 / 58; Pulse 116; Resp 22; Pulse Ox 100% on R/A; Pain 6/10; em 15:23 BP 126 / 56; Pulse 113; Resp 18; Pulse Ox 100% on R/A; em 07:32 Body Mass Index 25.73 (88.45 kg, 185.42 cm) em MDM: 07:32 Patient medically screened. jr8 10:30 Data reviewed: vital signs, nurses notes, lab test result(s), EKG, radiologic studies, jr8 CT scan, plain films. Data interpreted: Pulse oximetry: on room air is 99 %. Interpretation: normal. Counseling: I had a detailed discussion with the patient and/or guardian regarding: the historical points, exam findings, and any diagnostic results supporting the discharge/admit diagnosis, lab results, radiology results, the need for further work-up and treatment in the hospital. Physician consultation: Renard Mccarty MD was called at 10:30, was contacted at 10:31, regarding admission, to the telemetry unit. consult, patient's condition, and will see patient. 06/09 07:33 Order name: Basic Metabolic Panel; Complete Time: 08:52 jr8 06/09 07:33 Order name: CBC with Diff; Complete Time: 09:14 8 06/09 07:33 Order name: Creatinine for Radiology; Complete Time: 08:28 8 06/09 07:33 Order name: Hepatic Function; Complete Time: 08:52 06/09 07:33 Order name: Lipase; Complete Time: 08:52 06/09 07:46 Order name: US Extremity Venous Unilateral Ltd; Complete Time: 08:54 06/09 07:54 Order name: Creatine Phosphokinase; Complete Time: 08:52 EDMS 06/09 08:22 Order name: CBC Smear Scan; Complete Time: 09:14 EDMS 06/09 08:30 Order name: Blood Culture Adult (2) 8 06/09 08:30 Order name: Lactate; Complete Time: 11:28 8 06/09 08:30 Order name: Procalcitonin; Complete Time: 09:55 06/09 11:50 Order name: Magnesium; Complete Time: 12:40 06/09 14:12 Order name: Lactate Sepsis 2 HR Follow-up; Complete Time: 14:18 EDMS 06/09 07:33 Order name: IV Saline Lock; Complete Time: 07:47 06/09 08:54 Order name: XRAY Chest (1 view); Complete Time: 10:38 8 06/09 08:55 Order name: CT Abd/Pelvis - Without Cont; Complete Time: 09:55 06/09 07:33 Order name: Labs collected and sent; Complete Time: 07:48 jr8 Administered Medications: 08:07 Drug: NS 0.9% 500 ml Route: IV; Rate: bolus; Site: right antecubital; em 08:44 Follow up: IV Status: Completed infusion; IV Intake: 500ml em 08:15 Drug: fentaNYL (PF) 50 mcg Route: IVP; Site: right antecubital; iw 08:44 Follow up: Response: No adverse reaction; Pain is decreased em 09:01 Drug: NS 0.9% 500 ml Route: IV; Rate: bolus; Site: right antecubital; em 10:33 Follow up: IV Status: Completed infusion; IV Intake: 500ml em 09:17 Drug: fentaNYL (PF) 50 mcg Route: IVP; Site: right antecubital; em 09:56 Follow up: Response: No adverse reaction; Pain is decreased em 10:01 Drug: NS 0.9% 1000 ml Route: IV; Rate: 100 ml/hr; Site: right antecubital; em 11:25 Follow up: IV Status: Completed infusion; IV Intake: 100ml em 10:04 Drug: Zosyn 3.375 grams Route: IVPB; Infused Over: 60 mins; Site: right antecubital; em 11:30 Follow up: Response: No adverse reaction; IV Status: Completed infusion; IV Intake: em 100ml 10:16 Drug: Dilaudid 0.5 mg Route: IVP; Site: right antecubital; iw 10:47 Follow up: Response: No adverse reaction; Pain is unchanged, physician notified em 10:45 Drug: Potassium Chloride 40 mEq Route: PO; em 11:25 Follow up: Response: No adverse reaction em 11:20 Drug: Valium 2.5 mg Route: IVP; Site: right antecubital; iw 11:50 Follow up: Response: No adverse reaction; Pain is unchanged, physician notified em 11:59 Drug: fentaNYL (PF) 50 mcg Route: IVP; Site: right antecubital; em 14:00 Follow up: Response: No adverse reaction; Pain is decreased em 12:52 Drug: Magnesium Sulfate 2 grams Route: IVPB; Infused Over: 2 hrs; Site: right em antecubital; 14:09 Follow up: Response: No adverse reaction; IV Status: Completed infusion; IV Intake: em 100ml 13:40 Drug: vancoMYCIN 1 grams Route: IVPB; Infused Over: 2 hrs; Site: left hand; em 15:30 Follow up: IV Status: Completed infusion; IV Intake: 200ml em 14:25 Drug: NS 0.9% 1000 ml Route: IV; Rate: 1000 ml; Site: right antecubital; em 15:31 Follow up: IV Status: Completed infusion; IV Intake: 1000ml em Point of Care Testing: Blood Glucose: 07:40 Blood Glucose: 126 mg/dL; em Ranges: Critical Glucose Levels:Adult <50 mg/dl or >400 mg/dl <40 mg/dl or >180 mg/dl Disposition: 06/10 09:26 Co-signature as Attending Physician, Morgan Thompson MD. Disposition: 06/09/18 10:31 Hospitalization ordered by Renard Mccarty for Inpatient Admission. Preliminary diagnosis are Neutropenia due to infection, Dehydration, Acute kidney failure. - Bed requested for Telemetry/MedSurg (Inpatient). - Status is Inpatient Admission. em - Condition is Stable. - Problem is new. - Symptoms have improved. UTI on Admission? No Signatures: Dispatcher [employer] EDMA Shirley Barnett Edgar, SOFT METALS ENGRAVER HAND SOFT METALS ENGRAVER HAND em Kristan Duque, RN VALENTÍN iw Cristian Ramirez PA PA jr8 Lauren Crawford RN RN tw2 Leanne Odom RN RN df Morgan Thompson MD MD Corrections: (The following items were deleted from the chart) 06/09 07:53 07:46 CREATINE PHOSPHOKINASE+C.LAB.BRZ ordered. [facility] EDMA 13:56 10:31 Hospitalization Ordered by Renard Mccarty MD for Inpatient Admission. Preliminary bd diagnosis is Neutropenia due to infection; Dehydration; Acute kidney failure. Bed requested for Telemetry/MedSurg (Inpatient). Status is Inpatient Admission. Condition is Stable. Problem is new. Symptoms have improved. UTI on Admission? No. jr8 14:05 13:56 06/09/2018 10:31 Hospitalization Ordered by Renard Mccarty MD for Inpatient df Admission. Preliminary diagnosis is Neutropenia due to infection; Dehydration; Acute kidney failure. Bed requested for Telemetry/MedSurg (Inpatient). Status is Inpatient Admission. Condition is Stable. Problem is new. Symptoms have improved. UTI on Admission? No. bd 15:39 14:05 06/09/2018 10:31 Hospitalization Ordered by Renard Mccarty MD for Inpatient em Admission. Preliminary diagnosis is Neutropenia due to infection; Dehydration; Acute kidney failure. Bed requested for Telemetry/MedSurg (Inpatient). Status is Inpatient Admission. Condition is Stable. Problem is new. Symptoms have improved. UTI on Admission? No. df
[2018-06-09] MEDS ORDERED: POTASSIUM CL SA 10 MEQ TAB PO ONE (11:00)
[2018-06-09] MEDS ORDERED: DIAZEPAM 10 MG/2 ML INJ SYRINGE ONE (11:15)
[2018-06-09] MEDS ORDERED: Magnesium Sulfate 2gm IVPB 2 G/50 ML BAG IV ONE (12:57)
[2018-06-09] MEDS ORDERED: VANCOMYCIN 1 GM/250 ML BAG ONE (13:30)
[2018-06-09] MEDS ORDERED: ACETAMINOPHEN 500 MG TAB PO PRN (14:06)
[2018-06-09] MEDS ORDERED: GLUCAGON 1 MG/VIAL IM PRN (14:06)
[2018-06-09] MEDS ORDERED: CEFTRIAXONE/SWI 1gm 1 GM/10 ML SYR IV SCH (15:00)
[2018-06-09] MEDS ORDERED: VANCOMYCIN 1GM/D5W 200 ML IV SCH (15:00)
[2018-06-09] MEDS ORDERED: VANCOMYCIN/NS 1 gm 1 GM/250 ML BAG IV SCH (16:00)
[2018-06-09] MEDS: FENTANYL CITR 100 MCG/2 ML IV PRN (16:25)
[2018-06-09] MEDS: NA CHLORIDE IV SCH (16:26)
[2018-06-09] MEDS: MULTIVITAMINS IV SCH (16:26)
[2018-06-09] MEDS: INSULIN -REGULAR HUMAN 50 UNIT/0.5 ML ML SQ SCH ×2 (16:30→21:00)
[2018-06-09] MEDS ORDERED: NA CHLORIDE 0.9% 1,000 ML IV SCH (16:45)
[2018-06-09] MEDS ORDERED: NACHLORIDE 0.45% 1,000 ML with NA BICARB 8.4% 100 MEQ IV SCH ×2 (17:00)
[2018-06-09] MEDS ORDERED: VANCOMYCIN 2.25 GM in NA CHLORIDE 0.9% 500 ML IVPB ONE (17:00)
[2018-06-09 17:02] VITALS: BMI 25.7
[2018-06-09] MEDS ORDERED: VANCOMYCIN 1.25 GM in NA CHLORIDE 0.9% 250 ML IVPB ONE (18:00)
[2018-06-09] MEDS ORDERED: INFLUENZA VACCINE (for 3y+) 0.5 ML DOSE IMVAC ONE (18:00)
[2018-06-09] MEDS: ONDANSETRON 4 MG/2 ML VIAL IV PRN (19:44)
[2018-06-09] MEDS ORDERED: WATER FOR INJ,STERILE 1,000 ML with NA BICARB 8.4% 150 MEQ IV SCH ×2 (23:00)
[2018-06-10] MEDS: HYDROCORTISONE SUC 100 MG INJ IV SCH ×3 (00:22→06:21)
[2018-06-10] MEDS: ONDANSETRON 4 MG/2 ML VIAL IV PRN (00:23)
[2018-06-10] MEDS: FENTANYL CITR 100 MCG/2 ML IV PRN ×2 (00:32→03:44)
[2018-06-10] MEDS ORDERED: PIPERACIL/TAZO 2.25 GM VIAL IV ONE (01:11)
[2018-06-10] MEDS ORDERED: NA CHLORIDE 0.9% 50 ML ONE (01:12)
[2018-06-10] MEDS: D50W 25 GM/50 ML SYRINGE IV PRN ×5 (01:42→18:19)
[2018-06-10] MEDS ORDERED: D5W 1,000 ML IV ONE (01:56)
[2018-06-10] MEDS ORDERED: D5W 1,000 ML with NA BICARB 8.4% 150 MEQ IV SCH ×4 (02:00→07:00)
[2018-06-10] MEDS ORDERED: METOPROLOL TARTRATE 5 MG/5 ML INJ IV STA (02:55)
[2018-06-10] MEDS ORDERED: METOPROLOL TARTRATE 5 MG/5 ML INJ IV ONE (03:09)
[2018-06-10] MEDS: SOTALOL HCL 80 MG TAB PO SCH ×2 (03:17→18:00)
[2018-06-10 06:30] LABS: Absolute Lymphocytes (CBC) 0.3 K/uL (0.7-4.9); Absolute Neutrophil 12.5 K/uL (1.8-8.0); Basophils % 0.2 % (0-1.3); Eosinophils % 1.4 % (0-4.4); Hematocrit 32.2 % (39.6-49.0); Lymphocytes % 2.4 % (15.3-44.8); MPV 11.7 fL (7.6-11.3); Monocytes % 0.4 % (3.3-12.3); RBC Red Blood Cell Count 3.07 M/uL (4.33-5.43)
[2018-06-10] MEDS ORDERED: LORazepam 2 MG/ML VIAL IV ONE (06:45)
[2018-06-10] MEDS: INSULIN -REGULAR HUMAN 50 UNIT/0.5 ML ML SQ SCH ×4 (07:30→20:54)
--- NOTE | 2018-06-10 07:48 | P.HP ---
Certification for Inpatient Patient admitted to: Inpatient With expected LOS: >2 Midnights Practitioner: I am a practitioner with admitting privileges, knowledge of patient current condition, hospital course, and medical plan of care. Services: Services provided to patient in accordance with Admission requirements found in Title 42 Section 412.3 of the Code of Federal Regulations Patient History Date of Service: 06/10/18 Reason for admission: FEVER, WEAK AFTER CARDIAC CATH History of Present Illness: MR. 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 HE HAD CARDIAC CATH A DAY BEFORE ADMISSION PREPARING FOR LIVER TRANSPLANT AT [facility]. HE THAT DAY DEVELOPED STREAKING OF THE LEGS, SEVERE PAIN AND HIGH FEVER. I SAW HIM IN ER ON DAY OF ADMISSION. HE HAS BEEN LOSING WEIGHT DOWN BY AT LEAST 60 LBS. HE HAS NOT LOOKED WELL FOR A COUPLE OF MONTHS. HE LATER DEVELOPED MORE BLUE STREAKING OF THE LEGS, AND HAD SEVERE PAIN OF LEGS. Allergies No Known Allergies Allergy (Verified 02/10/15 14:32) Home Medications: Insulin Lispro [Humalog] See Protocol SQ PRN 06/09/18 Lactulose [Kristalose] 1 packet PO DAILY 06/09/18 PARoxetine HCl [Paxil] 10 mg PO DAILY 06/09/18 Pantoprazole [Protonix Tab*] 40 mg PO DAILY 06/09/18 Torsemide 10 mg PO DAILY 06/09/18 - Past Medical/Surgical History Has patient received pneumonia vaccine in the past: No Diabetic: Yes -: HTN -: High Cholesterol -: Insomnia -: DM-IDDM on Insulin pump -: psoriasis -: cirrhosis -: Liver biopsy Jan 2015 -: LEFT knee meniscus repair -: perineal abcess removal -: cardiac cath 06-08-18 - Family History Mother -: Diabetes, Cancer, Liver disease Notes: Breast CA, Hep C - Social History Smoking Status: Former smoker Alcohol use: No CD- Drugs: No Caffeine use: Yes Place of Residence: Home Review of Systems PALE, WEAK IN ER, ABLE TO CONVERSE. General: Fever, Weakness, Malaise Integumentary: Rash, Lesions Physical Examination - Vital Signs Temperature: 96.7 F Blood Pressure: 127/68 Pulse: 156 Respirations: 23 Pulse Ox (%): 100 - Physical Exam General: Alert, Cachectic, Moderate distress, Severe distress HEENT: Atraumatic, PERRLA, Mucous membr. moist/pink, EOMI, Sclerae nonicteric Neck: Supple, 2+ carotid pulse no bruit, No LAD, Without JVD or thyroid abnormality Respiratory: Clear to auscultation bilaterally, Normal air movement Cardiovascular: Regular rate/rhythm, Normal S1 S2 Musculoskeletal: No tenderness Integumentary: Tenderness/swelling, Erythema (JEREL LEGS) Neurological: Normal speech, Abnormal strength (GEN WEAK.) Lymphatics: No axilla or inguinal lymphadenopathy - Studies Laboratory Data (last 24 hrs) 06/09/18 07:40: Magnesium 1.6 L 06/09/18 07:40: Creatinine 4.62 H 06/09/18 07:40: WBC 1.0 L*, Hgb 11.4 L, Hct 34.4 L, Plt Count 68 L 06/09/18 07:40: Sodium 134 L, Potassium 3.1 L, BUN 50 H, Creatinine 4.64 H, Glucose 127 H, Total Bilirubin 6.2 H*, AST 37, ALT 21, Alkaline Phosphatase 54, Lipase 237 Assessment and Plan - Problems (Diagnosis) (1) Livedo reticularis Current Visit: Yes Status: Acute Plan: THIS CAN BE FROM ACUTE ILLNESS OR CHOLESTEROL EMBOLI. CONSERVATIVE THERAPY. (2) Cellulitis of lower limb Onset Date: 11/02/16 Current Visit: No Status: Acute Plan: BOTH SIDES. THESE ARE THE SOURCE OF SEPSIS. IV VANCOMYCIN ONE DOSE GIVEN. AND ZOSYN STARTED. Qualifiers: (3) Cirrhosis Onset Date: 01/29/16 Current Visit: No Status: Chronic Plan: HE IS ON TRANSPLANT LIST BUT WHEN I SAW HIM A FEW WEEKS AGO, I THOUGHT HE IS NOT GOING TO BE ABLE TO TOLERATE TRANSPLANT. Qualifiers: (4) Hepatic encephalopathy Current Visit: No Status: Chronic Plan: STABLE ON MEDS BUT HE DOES GET EPISODES AT TIMES. (5) Acute on chronic renal failure Current Visit: Yes Status: Acute Plan: IV DYE MADE HIS RENAL FUNCTION WORSE AND ALSO IT MAY HAVE CAUSED CURRENT CONDITION WITH MULTISYSTEM FAILURE. (6) Septic shock Current Visit: Yes Status: Acute Plan: IV ABX CELLULITIS AND PHLEBITIS ARE THE CAUSE SO FAR. PROGNOSIS IS POOR. - Advance Directives Does patient have a Living Will: No Does patient have a Durable POA for Healthcare: Yes
[2018-06-10 07:50] LABS: Platelet Estimate DECR; Toxic Granulation PRESENT; Urine White Blood Cell Casts OK
[2018-06-10 07:51] LABS: Anisocytosis 1+; Blood Morphology Comment NOTED (NOT SEEN); Burr Cells 2+; Poikilocytosis 1+; Polychromasia 2+
[2018-06-10 07:56] LABS: Potassium 4.5 mmol/L (3.5-5.1)
[2018-06-10 07:57] LABS: Bilirubin Direct 4.8 mg/dL (0-0.2); Bilirubin Total 6.5 mg/dL (0.2-1.0)
[2018-06-10 07:58] LABS: Albumin 1.7 g/dL (3.4-5.0); Magnesium 2.3 mg/dL (1.8-2.4); Protein, Total 4.6 g/dL (6.4-8.2)
--- NOTE | 2018-06-10 07:58 | P.PN ---
Subjective Date of Service: 06/10/18 Chief Complaint: LOW TEMPERATURE, OBTUNDATION, HIGH HEART RATE, LOW BP Subjective: Worsening I HAVE BEEN ON PHONE WITH NURSES ON 4TH FLOOR AND THEN ICU ALL DAY AND ALL NIGHT OFF AND ON. I HAD HIM TRANSFERRED TO ICU HE HAD SEVERE PAIN, LOW GLUCOSE AND WAS SHOWING SIGNS OF WORSENING. OVERNIGHT HE HAS SEVERE LEG PAINS, HE WENT INTO A FIB AND STARTED HAVING LOW TEMPERATURE. WITH SEVERE AGITATION I HAD TO GIVE HIM A SMALL DOSE OF ATIVAN. HE HAS NO RENAL OUTPUT. 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 Review of Systems General: Fever, Weakness Integumentary: Rash (LEGS, STREAKING AND ECCHYMOSIS.) Neurological: Confusion Physical Examination - Vital Signs Temperature: 96.7 F Blood Pressure: 127/68 Pulse: 156 Respirations: 23 Pulse Ox (%): 100 - Physical Exam General: Oriented x1, Cachectic, Severe distress, Confused Neck: Supple Respiratory: Clear to auscultation bilaterally Cardiovascular: Irregular heart rate/rhythm Integumentary: Rash(es) Neurological: Other (OBTUNDED.) - Studies Laboratory Data (last 24 hrs) 06/09/18 07:40: Magnesium 1.6 L 06/09/18 07:40: Creatinine 4.62 H 06/09/18 07:40: WBC 1.0 L*, Hgb 11.4 L, Hct 34.4 L, Plt Count 68 L 06/09/18 07:40: Sodium 134 L, Potassium 3.1 L, BUN 50 H, Creatinine 4.64 H, Glucose 127 H, Total Bilirubin 6.2 H*, AST 37, ALT 21, Alkaline Phosphatase 54, Lipase 237 Assessment And Plan - Current Problems (Diagnosis) (1) Livedo reticularis Current Visit: Yes Status: Acute Plan: THIS CAN BE FROM ACUTE ILLNESS OR CHOLESTEROL EMBOLI. CONSERVATIVE THERAPY. (2) Cellulitis of lower limb Onset Date: 11/02/16 Current Visit: No Status: Acute Plan: BOTH SIDES. THESE ARE THE SOURCE OF SEPSIS. IV VANCOMYCIN ONE DOSE GIVEN. AND ZOSYN STARTED. JEREL ECCHYMOSIS IS WORSE. PHLEBITIS. Qualifiers: (3) Cirrhosis Onset Date: 01/29/16 Current Visit: No Status: Chronic Plan: HE IS ON TRANSPLANT LIST BUT WHEN I SAW HIM A FEW WEEKS AGO, I THOUGHT HE IS NOT GOING TO BE ABLE TO TOLERATE TRANSPLANT. Qualifiers: Hepatic cirrhosis type: unspecified hepatic cirrhosis (4) Hepatic encephalopathy Current Visit: No Status: Chronic Plan: STABLE ON MEDS BUT HE DOES GET EPISODES AT TIMES. (5) Acute on chronic renal failure Current Visit: Yes Status: Acute Plan: IV DYE MADE HIS RENAL FUNCTION WORSE AND ALSO IT MAY HAVE CAUSED CURRENT CONDITION WITH MULTISYSTEM FAILURE. CREATININE IS HIGHER, BICARB IS LOW. DR. PARTIDA IS ON THE CASE. HE IS TOO UNSTABLE FOR DIALYSIS. HE HAS NO URINE OUTPUT. (6) Septic shock Current Visit: Yes Status: Acute Plan: IV ABX CELLULITIS AND PHLEBITIS ARE THE CAUSE SO FAR. PROGNOSIS IS POOR. HE IS ON DUAL ABX. IV STEROIDS AND IV ABX. HIS PROGNOSIS IS POOR. I TOLD THE FAMILY. WE WILL CONTINUE OUR EFFORTS ABG STAT. (7) Multisystem organ failure Current Visit: Yes Status: Acute Plan: HEPATORENAL FAILURE SEPSIS A. FIB. HYPOTHERMIA. RESUME THERMAL BLANKETS AND AGGRSSIVE THERAPY. UPDATED DR. SHARIF, DR. PINEDA AND DR PARTIDA.
[2018-06-10 08:48] LABS: Arterial Blood Carboxyhemoglob 0.8 % (0-1.5); Blood Gas Oxyhemoglobin 95.5 % (94-97); Blood O2 Saturation 96.8 % (92-98.5)
[2018-06-10] MEDS ORDERED: THIAMINE 200 MG/2 ML INJ IVP SCH (09:00)
[2018-06-10] MEDS: MULTIVITAMINS IV SCH (09:00)
[2018-06-10] MEDS: NA CHLORIDE IV SCH (09:00)
[2018-06-10] MEDS ORDERED: FENTANYL CITR 100 MCG/2 ML IV PRN (09:13)
--- NOTE | 2018-06-10 09:17 | P.CNS ---
Date of Consult: 06/10/18 Chief Complaint: Respiratory failure shock History of Present Illness: Patient is 52 years of age evaluated by me in the intensive care unit this condition deteriorated after a cardiac catheterization dillon was a being evaluated for a liver transplant she is now last in septic shock with positive blood cultures rapidly progressing renal failure herpetic failure hypoglycemia and hypothermia Allergies No Known Allergies Allergy (Verified 02/10/15 14:32) Home Medications: Insulin Lispro [Humalog] See Protocol SQ PRN 06/09/18 Lactulose [Kristalose] 1 packet PO DAILY 06/09/18 PARoxetine HCl [Paxil] 10 mg PO DAILY 06/09/18 Pantoprazole [Protonix Tab*] 40 mg PO DAILY 06/09/18 Torsemide 10 mg PO DAILY 06/09/18 - Past Medical/Surgical History Diabetic: Yes -: HTN -: High Cholesterol -: Insomnia -: DM-IDDM on Insulin pump -: psoriasis -: cirrhosis -: Liver biopsy Jan 2015 -: LEFT knee meniscus repair -: perineal abcess removal -: cardiac cath 06-08-18 - Family History Mother Medical History: Diabetes, Cancer, Liver disease Notes: Breast CA, Hep C - Social History Alcohol use: No CD- Drugs: No Caffeine use: Yes Place of Residence: Home Review of Systems is unable to be obtained Physical Examination Temp Pulse Resp BP Pulse Ox 96.7 F L 156 H 23 H 127/68 100 06/10/18 08:02 06/10/18 08:02 06/10/18 08:02 06/10/18 08:02 06/10/18 08:02 General: Unresponsive HEENT: Atraumatic Neck: Supple Respiratory: Clear to auscultation bilaterally, Diminished Cardiovascular: No edema, Irregular heart rate/rhythm Capillary refill: Other (Patient has mottled extremities) Gastrointestinal: Hypoactive Laboratory Data (last 24 hrs) 06/09/18 07:40: Magnesium 1.6 L - Problems (1) Multi-organ failure with liver failure Current Visit: Yes Status: Acute Plan: Patient is 52 years of age has multi organ failure with bacteremia the oxygenation is satisfactory however unable to obtain a pulse ox continue with vancomycin Zosyn hydrocortisone I have added thymine discuss with family members do not resuscitate no intubation trial of BiPAP bicarbonate supportive care family members are aware that he is unlikely to survive decent blood gases pH 7.01 increase her to 15.1 p.o. 223 most likely metabolic acidosis from his renal and hepatic failure chest x-ray clear Critical Care: Yes Time Spent Managing Pts care (In Minutes): 50
[2018-06-10 09:30] VITALS: O2SAT 96
--- NOTE | 2018-06-10 09:41 | CON ---
History Of Present Illness: Mr. Jarvis is a 52-year-old man. I am asked to see him because he has at [facility]. Mr. Jarvis has not had atrial fibrillation before. He came to the hospital with deteriorat ion of his condition just 2 days ago. The patient was known to be neutropenic and have a severe infe ction. Two days ago, he had a cardiac cath that showed minor plaquing. He has underlying cirrhosis of the liver due to the hepatic steatosis. In the past he had been obese. Apparently, there was leg pain, confusion and a general feeling that he looked extremely ill. He has been on a liver transpla nt list. When he first came to the hospital, his temperature was 97.6, blood pressure 96/52. His pr esent vital signs, he is more hypotensive and his heart rate has gone up and he is in atrial fib. Physical Examination: General: He is 6 feet 1 inch, 215 pounds. He looks extremely ill. He is not intubated. Lungs: Reveal diffuse crackles. No significant wheezing. Heart: Irregularly irregular, going about 110-125 beats per minute. It is atrial fibrillation. QRS is a little bit wide. There is no significant murmur. Abdomen: Swollen. There seems to be ascites. He has a general jaundiced appearance to him. Laboratory Data: Reveals a white blood cell count of 13,000, it was 1000 yesterday. I am not sure i f there was a lab error. He has a total bilirubin of 6.5, phosphate levels at 9.0. Blood sugars hav e been as low as 34. His bicarbonate level is 7 extremely low. The blood gas indicates the severe m etabolic acidosis and a bicarbonate drip is present, but probably not capable of being affective with this level of liver failure. Impression: This is atrial fibrillation, really cannot be treated with any medicines we have. I deanne bt if digoxin is worth giving a try and giving anticoagulants is out of the question because of his v quentin low platelet count, general ill state. He has multiorgan failure. Platelet count is just 69,000 . Trying to give him amiodarone or Betapace would probably be fatal to him and actually almost anyth ing we do will end up in fatality, so I will not make any medicine changes on him. Certainly trying to give a beta-danya to slow him down, would make his blood pressure go even lower, it is 88 at the time of the exam. Thank you very much for your kind referral of Mr. Jarvis. I will follow him with you. GIL Voice ID: [id number] Report ID: [id number]
[2018-06-10] MEDS ORDERED: SODIUM BICARB 50 MEQ/50ML VIAL IV ONE (10:00)
[2018-06-10] MEDS ORDERED: ALBUMIN HUMAN 25% 200 ML IV ONE (10:15)
--- NOTE | 2018-06-10 10:16 | P.CNS ---
Date of Consult: 06/10/18 Reason for Consult: ANURAG Requesting Physician: Renard Mccarty V Primary Care Provider: Dr. Mccarty Chief Complaint: Respiratory failure shock History of Present Illness: MR. 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 HE HAD CARDIAC CATH A DAY BEFORE ADMISSION PREPARING FOR LIVER TRANSPLANT AT [facility]. HE THAT DAY DEVELOPED STREAKING OF THE LEGS, SEVERE PAIN AND HIGH FEVER. I SAW HIM IN ER ON DAY OF ADMISSION. HE HAS BEEN LOSING WEIGHT DOWN BY AT LEAST 60 LBS. HE HAS NOT LOOKED WELL FOR A COUPLE OF MONTHS. HE LATER DEVELOPED MORE BLUE STREAKING OF THE LEGS, AND HAD SEVERE PAIN OF LEGS. 10:31 This 52 yrs old Male presents to ER via Wheelchair with complaints of Colitis jr8 Flare-Up. 10:31 Patient stated that for the past week has had n/v/d from colitis flare up. Saw PCP and jr8 started on flagyl. Has not been able to keep a lot of it down. Yesterday had angiogram done for clearance to be put on liver transplant for cirrhosis of the liver. Came to ED today for left leg pain and dehydration secondary to colitis. Severity of symptoms: At their worst the symptoms were moderate in the emergency department the symptoms are unchanged. It is unknown whether or not the patient has had similar symptoms in the past. The patient has been recently seen by a physician:. Allergies No Known Allergies Allergy (Verified 02/10/15 14:32) Home medications list reviewed: Yes Home Medications: Insulin Lispro [Humalog] See Protocol SQ PRN 06/09/18 Lactulose [Kristalose] 1 packet PO DAILY 06/09/18 PARoxetine HCl [Paxil] 10 mg PO DAILY 06/09/18 Pantoprazole [Protonix Tab*] 40 mg PO DAILY 06/09/18 Torsemide 10 mg PO DAILY 06/09/18 - Past Medical/Surgical History Diabetic: Yes -: HTN -: High Cholesterol -: Insomnia -: DM-IDDM on Insulin pump -: psoriasis -: cirrhosis -: Liver biopsy Jan 2015 -: LEFT knee meniscus repair -: perineal abcess removal -: cardiac cath 06-08-18 - Family History Mother Medical History: Diabetes, Cancer, Liver disease Notes: Breast CA, Hep C - Social History Alcohol use: No CD- Drugs: No Caffeine use: Yes Place of Residence: Home Review of Systems is unable to be obtained Physical Examination Temp Pulse Resp BP Pulse Ox 96.7 F L 156 H 23 H 127/68 100 06/10/18 08:02 06/10/18 08:02 06/10/18 08:02 06/10/18 08:02 06/10/18 08:02 General: Cooperative, Moderate distress HEENT: Atraumatic, Mucous membr. moist/pink Neck: Supple, No LAD Respiratory: Diminished Cardiovascular: Edema, Irregular heart rate/rhythm Gastrointestinal: Soft and benign, No guarding, Distended, Ascites Musculoskeletal: No clubbing, No contractures Integumentary: No rashes, No cyanosis Laboratory Data (last 24 hrs) 06/09/18 07:40: Magnesium 1.6 L Imagings Data: EXAM DESCRIPTION: CT - Abdomen Pelvis Wo Contrast - 06/09/2018 9:23 am CLINICAL HISTORY: Abdominal pain COMPARISON: January 2018 TECHNIQUE: Computed axial tomography of the abdomen and pelvis was obtained. IV and oral contrast were not requested. All CT scans are performed using dose optimization technique as appropriate and may include automated exposure control or mA/KV adjustment according to patient size. FINDINGS: The evaluation of solid organs, vessels and bowel is limited secondary to the lack of contrast administration. A cirrhotic liver. Spleen is moderately enlarged. The pancreas and adrenals appear unremarkable. The kidneys are dense. Small amount of contrast is present within the bladder. There is no evidence of diverticulitis. Small umbilical hernia Small pleural effusions. Moderate amount of ascites. Diffuse edema within the subcutaneous tissues . Thickening of the wall entire colon Gallstones without gallbladder wall thickening Mild gastric distention IMPRESSION: Cirrhosis with moderate splenomegaly Thickening of the wall of the entire colon may be related to hypoalbuminemia or colitis Dense kidneys. Patient had IV contrast yesterday. This probably indicates diminished renal function Conclusions/Impression: A/ ANURAG likely multifactorial including likely ATN from recent contrast exposure and sepsis. Acute respiratory failure on Bipap. CKD? Metabolic acidosis. MARIANO/ Liver cirrhosis with ascites. Hypoalbuminemia. Sepsis. Pancytopenia. HyperPO4. P/ Continue current POC and Medications. Give IV Albumin 50mg X1 now and PRN. Agree with aggressive bicarb therapy. Consider pressor therapy as needed to maintain perfusion. Will need to monitor volume resuscitation closely due to worsening edema and hx ascites. No NSAIDs. AM labs. Daily weight. Overall prognosis poor with multi-organ dysfunction. May benefit from CRRT therapy but unclear if he would be able to tolerate therapy in his current condition and without intubation. Family has elected to make the patient DNR at this time; No intubation. Case discussed with Dr. Mccarty and nursing staff. Critical Care: Yes (Greater than 30min)
[2018-06-10] MEDS: D5W 1,000 ML with NA BICARB 8.4% 150 MEQ IV SCH ×6 (10:56→23:11)
[2018-06-10] MEDS: LORazepam 2 MG/ML VIAL IV PRN ×3 (13:27→21:52)
--- NOTE | 2018-06-10 14:14 | EKG ---
Test Date: 2018-06-10 Test Time: 02:40:37 Provisioning Specialist: DANIEL MEASUREMENT RESULTS: Intervals: Rate: 147 CO: QRSD: 98 QT: 340 QTc: 532 Matheson: P: CO: QRS: 66 T: -58 INTERPRETIVE STATEMENTS: Atrial fibrillation with rapid ventricular response ST & T wave abnormality, consider inferior ischemia or digitalis effect Abnormal ECG Compared to ECG 11/01/2016 14:34:25 ST (T wave) deviation now present Possible ischemia now present Sinus rhythm no longer present T-wave abnormality no longer present Electronically Signed On 06-10-18 14:13:17 ROLL TENSION TESTER by Albino Ramsay
[2018-06-10] MEDS ORDERED: HYDROCORTISONE SUC 100 MG INJ IV SCH (21:00)
[2018-06-10] MEDS ORDERED: PIPER/TAZO/NS 2.25gm 2.25 GM/50 ML BAG IVPB SCH (23:00)
[2018-06-11 04:05] VITALS: BP 44/23; TEMP 97.3
--- NOTE | 2018-06-11 09:59 | P.DS ---
Admission Date: 06/09/18 Discharge Date: 06/11/18 Primary Care Provider: Dr. Mccarty Disposition: Reason for Admission: Respiratory failure shock - Problems (1) Livedo reticularis Status: Acute (2) Cellulitis of lower limb Onset Date: 11/02/16 Status: Acute Qualifiers: (3) Cirrhosis Onset Date: 01/29/16 Status: Chronic Qualifiers: Hepatic cirrhosis type: unspecified hepatic cirrhosis (4) Hepatic encephalopathy Status: Chronic (5) Acute on chronic renal failure Status: Acute (6) Septic shock Status: Acute (7) Multisystem organ failure Status: Acute Brief History of Present Illness: MR. 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 HE HAD CARDIAC CATH A DAY BEFORE ADMISSION PREPARING FOR LIVER TRANSPLANT AT [facility]. HE THAT DAY DEVELOPED STREAKING OF THE LEGS, SEVERE PAIN AND HIGH FEVER. I SAW HIM IN ER ON DAY OF ADMISSION. HE HAS BEEN LOSING WEIGHT DOWN BY AT LEAST 60 LBS. HE HAS NOT LOOKED WELL FOR A COUPLE OF MONTHS. HE LATER DEVELOPED MORE BLUE STREAKING OF THE LEGS, AND HAD SEVERE PAIN OF LEGS. MR. SOLIS CAME IN IN SERIOUS CONDITION WITH ACUTE RENAL FAILURE, ACUTE SEPSIS FROM LEGS CELLULITIS, SEVERE METABOLIC ACIDOSIS AFTER HAVING CARDIAC CATH FOR LIVER TRANSPLANT WORK UP. HE RAPIDLY GOT WORSE. HE WAS GIVEN VANCOMYCIN, ZOSYN , IV FLUIDS WITH BICARB, STEROIDS IV AND VITAMIN INFUSION. I SAW RAPID DETERIORATION AND I ADVISED THE FAMILY NEXT DAY THAT HE MOST LIKELY WILL NOT SURVIVE. THEY DECIDED TO HAVE DNR STATUS AFTER GRIEVING HOURS. HE EARLY AM EXPECTED. Vital Signs/Physical Exam: Temp Pulse Resp BP Pulse Ox 97.3 F 66 19 44/23 L 92 06/11/18 00:00 06/11/18 01:00 06/11/18 01:00 06/11/18 01:00 06/10/18 19:00 Laboratory Data at Discharge: WBC 13.1 K/uL (4.3-10.9) H D 06/10/18 05:50 Hgb 10.2 g/dL (13.6-17.9) L 06/10/18 05:50 Hct 32.2 % (39.6-49.0) L 06/10/18 05:50 Plt Count 69 K/uL (152-406) L 06/10/18 05:50 Sodium 134 mmol/L (136-145) L 06/10/18 05:50 Potassium 4.5 mmol/L (3.5-5.1) 06/10/18 05:50 BUN 53 mg/dL (7-18) H 06/10/18 05:50 Creatinine 5.01 mg/dL (0.55-1.3) H* 06/10/18 05:50 Glucose 130 mg/dL (74-106) H 06/10/18 05:50 Uric Acid 5.0 mg/dL (3.5-7.2) 06/10/18 05:50 Phosphorus 9.0 mg/dL (2.5-4.9) H* 06/10/18 05:50 Magnesium 2.3 mg/dL (1.8-2.4) D 06/10/18 05:50 Total Bilirubin 6.5 mg/dL (0.2-1.0) H* 06/10/18 05:50 AST 359 U/L (15-37) H* D 06/10/18 05:50 ALT 48 U/L (12-78) 06/10/18 05:50 Alkaline Phosphatase 55 U/L (45-117) 06/10/18 05:50 Lipase 237 U/L (73-393) 06/09/18 07:40 Home Medications: Insulin Lispro [Humalog] See Protocol SQ PRN 06/09/18 Lactulose [Kristalose] 1 packet PO DAILY 06/09/18 PARoxetine HCl [Paxil] 10 mg PO DAILY 06/09/18 Pantoprazole [Protonix Tab*] 40 mg PO DAILY 06/09/18 Torsemide 10 mg PO DAILY 06/09/18
[2018-06-11] MEDS ORDERED: VANCOMYCIN 1.5 GM in NA CHLORIDE 0.9% 500 ML IVPB SCH (17:00)
== END 2018-06-11 01:22 | disposition expired | DRG 871 ==
LOC: ER 07:27 → ERHOLD 13:20 → 4TH 14:52 → 3RD-ICU 06-10 00:12
PROVIDERS: ADMIT Internal Medicine; ATTEND Internal Medicine
PROC: 5A09457 Assistance with Respiratory Ventilation, 24-96 Consecutive Hours, Continuous Positive Airway Pressure (ICD-10-PCS; principal; 2018-06-09)
DX: A41.9 Sepsis, unspecified organism (principal); R65.21 Severe sepsis with septic shock; J96.00 Acute respiratory failure, unspecified whether with hypoxia or hypercapnia; N17.0 Acute kidney failure with tubular necrosis; L03.116 Cellulitis of left lower limb; L03.115 Cellulitis of right lower limb; N17.9 Acute kidney failure, unspecified; E87.2 Acidosis; R18.8 Other ascites; J90 Pleural effusion, not elsewhere classified; D61.818 Other pancytopenia; R23.1 Pallor; K75.81 Nonalcoholic steatohepatitis (NASH); K72.90 Hepatic failure, unspecified without coma; I48.91 Unspecified atrial fibrillation; E11.649 Type 2 diabetes mellitus with hypoglycemia without coma; Z96.41 Presence of insulin pump (external) (internal); G47.00 Insomnia, unspecified; Z66 Do not resuscitate; D70.9 Neutropenia, unspecified; I95.9 Hypotension, unspecified; K42.9 Umbilical hernia without obstruction or gangrene; E88.09 Other disorders of plasma-protein metabolism, not elsewhere classified; I46.9 Cardiac arrest, cause unspecified; E86.0 Dehydration
CPT/HCPCS: 36415; 71045; 74176; 80048; 80076; 82550; 82805; 82962; 83605; 83690; 83735; 84100; 84145; 84550; 85025; 87040; 87077; 87186; 87205; 93005; 93971; 94660; 99285; J0696; J1170; J1720; J2405; J2543; J3010; J3360; J3370; J3411; J3475; J7030; P9047